=== PATIENT | female | born 1940 | race Caucasian/White ===

== ENCOUNTER 2019-02-08 14:23 | Inpatient (IN) | payer MEDICARE ==
[~2019-02-08] VITALS: Ht 162.6 cm; Wt 49.6 kg
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
[2019-02-08] MEDS ORDERED: BAYER CHEWABLE81 MG PO (15:48)
[2019-02-08] MEDS ORDERED: DONEPEZIL HCL10 MG PO (15:48)
[2019-02-08] MEDS ORDERED: BUSPAR10 MG PO (15:49)
[2019-02-08] MEDS ORDERED: CLARITIN 10 MG10 MG PO (15:50)
[2019-02-08] MEDS ORDERED: COLACE100 MG PO (15:54)
[2019-02-08] MEDS ORDERED: CYMBALTA30 MG PO (15:55)
[2019-02-08] MEDS ORDERED: TIROSINT88 MCG PO (15:56)
[2019-02-08] MEDS ORDERED: LISINOPRIL10 MG PO (15:56)
[2019-02-08] MEDS ORDERED: NAMENDA5 MG PO (16:03)
[2019-02-08] MEDS ORDERED: OXYBUTYNIN CHLOR5 MG PO (16:04)
[2019-02-08] MEDS ORDERED: RISPERDAL0.25 MG PO (16:05)
[2019-02-08] MEDS ORDERED: ARTIFICIAL TEAR15 ML EACH EYE (16:19)
[2019-02-08] MEDS ORDERED: MYLANTA / MAALO30 ML PO (16:20)
[2019-02-08] MEDS ORDERED: ACETAMINOPHEN325 MG PO (16:21)
[2019-02-08] MEDS ORDERED: ZOFRAN8 MG PO (16:22)
[2019-02-08 16:23] VITALS: BP 129/77; BMI 18.7
--- NOTE | 2019-02-08 17:06 | NUR ---
Attempted to call the skilled nursing to check on pneumonia vaccine status, no answer times multiple attempts.
--- NOTE | 2019-02-08 19:13 | NUR ---
Aplied a bed alarm to the patient's bed.
[2019-02-08 20:00] VITALS: BP 102/59
--- NOTE | 2019-02-08 21:17 | NUR ---
CONFUSED, NO SIGNS OF AGGRESSION AT THIS POINT, USES A WHEEL CHAIR FOR MOBILITY. WILL FOLLOW POC
[2019-02-09 06:26] LABS: BASOPHILS 0.3 % (0-2); EOSINOPHILS 2.9 % (0-7); HEMATOCRIT 41.7 % (36.0-48.0); HEMOGLOBIN 13.4 g/dL (12-16); IMMATURE GRANULOCYTES 0.1 % (0-5); LYMPHOCYTES 28.7 % (15-50); MCH 30.7 pg (26.0-34.0); MCHC 32.1 g/dL (31.0-37.0); MCV 95.4 fL (80.0-100.0); MEAN PLATELET VOLUME 9.8 fL (7.4-10.4); MONOCYTES 12.9 % (2-11); NEUTROPHILS 55.1 % (40-80); PLATELET COUNT 267 10x3/uL (130-400); RBC 4.37 10x6/uL (4.00-5.40); RDW 13.9 % (11.5-14.5); WBC 7.7 10x3/uL (4.8-10.8)
[2019-02-09 07:45] LABS: ALBUMIN 3.5 g/dL (3.4-5.0); ANION GAP 5.8 mmol/L (8-16); BILIRUBIN - TOTAL 0.35 mg/dL (0.2-1.3); CALCIUM 9.6 mg/dL (8.5-10.1); CARBON DIOXIDE 31.3 mmol/L (21.0-32.0); CHOL - HDL RATIO 2.9 ratio (2.3-4.1); CREATININE - SERUM 1.1 mg/dL (0.6-1.3); LDL-HDL RATIO 1.7 ratio (1.5-3.5); POTASSIUM - SERUM 4.1 mmol/L (3.5-5.1); PROTEIN - SERUM 7.8 g/dL (6.4-8.2); THYROID STIMULATING HORMONE 1.13 uIU/mL (0.36-3.74)
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
[2019-02-09 11:03] VITALS: BP 116/71
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
[2019-02-09 18:56] VITALS: BP 108/63
--- NOTE | 2019-02-09 19:17 | NUR ---
PT WAS SITTING IN WHEELCHAIR IN [facility]. PT STATED SHE TRIED TO GET UP. PT SLID OUT OF WHEELCHAIR ONTO FLOOR. DENIES ANY INJURY OR PAIN. VITALS: B/P: 105/59, P: 96, R: 18, T: 98.3. HOUSE SUPERVISIOR NOTIFIED. WILL NOTIFIY FAMILY.
--- NOTE | 2019-02-09 19:39 | NUR ---
CALLED DR. GUTIERREZ UNABLE TO REACH AT THIS TIME. WILL AWAIT CALL BACK.
--- NOTE | 2019-02-09 20:17 | NUR ---
DR. GUTIERREZ CALL BACK NOTIFIED OF INCIDENT. NO NEW ORDERS GIVEN AT THIS TIME.
--- NOTE | 2019-02-09 20:17 | NUR ---
ATTEMPTED TO CONTACT AT [phone]. NO ANSWER. AWAITING CALLBACK.
--- NOTE | 2019-02-09 21:20 | NUR ---
RECEIVED IN DAYROOM SITTING IN A RECLINING CHAIR WITH PEERS AT HER SIDE. CALM AND COOPERATIVE WITH CARE AND ASSESSMENT. NO SIGNS OF AGGRESSION. REDIRECT AND REORIENT NEEDED. CONTINUES TO SIT QUIETLY IN DAYROOM. CONTINUE PLAN OF CARE.
[2019-02-10 06:25] LABS: BASOPHILS 0.1 % (0-2); EOSINOPHILS 2.8 % (0-7); HEMATOCRIT 41.9 % (36.0-48.0); HEMOGLOBIN 13.3 g/dL (12-16); IMMATURE GRANULOCYTES 0.1 % (0-5); LYMPHOCYTES 32.9 % (15-50); MCH 30.4 pg (26.0-34.0); MCHC 31.7 g/dL (31.0-37.0); MCV 95.7 fL (80.0-100.0); MEAN PLATELET VOLUME 10.1 fL (7.4-10.4); MONOCYTES 12.7 % (2-11); NEUTROPHILS 51.4 % (40-80); PLATELET COUNT 256 10x3/uL (130-400); RBC 4.38 10x6/uL (4.00-5.40); RDW 13.8 % (11.5-14.5); WBC 6.7 10x3/uL (4.8-10.8)
--- NOTE | 2019-02-10 08:00 | NUR ---
PT IS AWAKE AND ALERT TO PERSON. CALM AND COOPERATIVE WITH ASSESSMENT. PT IS VERY CONFUSED AND HAS NO INSIGHT INTO HER SITUATION. PRESCRIBED MEDS PROVIDED. MED COMPLIANT. REDIRECT AND REORIENT NEEDED. FALL PRECAUTIONS IN PLACE. WILL CPOC.
[2019-02-10 09:13] VITALS: BP 98/80
[2019-02-10 10:10] LABS: ANION GAP 7.1 mmol/L (8-16); CALCIUM 9.4 mg/dL (8.5-10.1); CARBON DIOXIDE 33.8 mmol/L (21.0-32.0); POTASSIUM - SERUM 4.9 mmol/L (3.5-5.1)
[2019-02-10 13:52] VITALS: Ht 162.6 cm; Wt 49.6 kg
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
[2019-02-10 20:00] VITALS: BP 134/79
--- NOTE | 2019-02-10 21:06 | NUR ---
RECEIVED IN DAYROOM. SITTING QUIETLY IN A RECLINING CHAIR. CALM AND COOPERATIVE WITH CARE AND ASSESSMENT. NO SIGNS OF AGGRESSION. REDIRECT AND REORIENT NEEDED. RESTING EYES CLOSED IN BED AT THIS TIME. CONTINUE PLAN OF CARE
[2019-02-11 05:40] LABS: APPEARANCE CLEAR (CLEAR); BILIRUBIN NEGATIVE (NEGATIVE); COLOR YELLOW (YELLOW); GLUCOSE NEGATIVE (NEGATIVE); KETONE SMALL mg/dL (NEGATIVE); NITRITE NEGATIVE (NEGATIVE); PROTEIN 1+ mg/dL (NEGATIVE); SPECIFIC GRAVITY 1.015 (1.005-1.020); UROBILINOGEN NORMAL (NORMAL)
[2019-02-11 05:42] LABS: BACTERIA FEW /hpf (NEGATIVE); EPITHELIAL CELLS 0-5 /hpf (0-5); WHITE CELLS - URINE 0-5 /hpf (NEGATIVE)
[2019-02-11 08:11] LABS: RAPID PLASMA REAGIN Non Reactive (Non Reactive)
[2019-02-11 08:58] VITALS: BP 138/86
--- NOTE | 2019-02-11 10:29 | NUR ---
RECEIVED PT. IN DINING ROOM AT BREAKFAST TIME, ALERT, CALM, COOPERATIVE, NO AGGRESSION NOTED, APPETITE POOR, MEDS ADMIN PER ORDERS WITH COMPLETE MED COMPLIANCE NOTED. COOPERATIVE WITH POC. CONT POC DIRECTED.
--- NOTE | 2019-02-11 15:36 | PN ---
PATIENT:ANTOINETTE LOYD MEDICAL RECORD: [id number] LOCATION:ELENI Rand112 ADMISSION DATE: 02/08/19 PROGRESS NOTE DATE OF SERVICE: 02/10/2019 SUBJECTIVE: The patient's case was discussed with staff. She has no new complaint. OBJECTIVE: The patient is not eating well, but she did sleep well last night. She is clearly very impaired cognitively. ASSESSMENT: Dementia. PLAN: I am going to wait another day before starting her on Megace for appetite stimulation. She will be maintained on her current medications today. TRANSINT:[id number] Voice Confirmation ID: [id number] DOCUMENT ID: [id number] ZHENG MIRANDA MD at 1536 CC: [id number] DICTATION DATE: 02/10/19 1625 VENUE MANAGER: 02/10/19 1632 ADM IN [facility] [address] [place] [address]
--- NOTE | 2019-02-11 17:28 | NUR ---
PATIENT AGGRESSIVE, YELLING, EXPERIENCING ANXIETY. UNABLE TO RE-DIRECT DESPITE MULTIPLE ATTEMPTS. ATIVAN 0.5 MG AND HALDOL 2 MG ADMIN IM. SOSA WELL.
--- NOTE | 2019-02-11 18:24 | NUR ---
PATIENT YELLING, AGGRESSIVE, EXPERIENCING ANXIETY. ATIVAN 0.5 MG AND HALDOL 2 MG ADMIN IM. SOSA WELL.
[2019-02-11 22:08] VITALS: BP 110/69
--- NOTE | 2019-02-11 23:16 | NUR ---
RECEIVED IN BEDROOM. RESTING IN BED WITH EYES CLOSED. RESPONDS TO VOICE. CALM AND COOPERATIVE WITH CARE AND ASSESSMENT. NO SIGNS OF AGGRESSION. REDIRECT AND REORIENT NEEDED. RESTING IN BED WITH EYES CLOSED AT THIS TIME. CONTINUE PLAN OF CARE
[2019-02-12 08:48] VITALS: BP 112/56
--- NOTE | 2019-02-12 10:00 | NUR ---
RECEIVED PT IN DINING ROOM FOR B'FAST, APPETITE POOR, CALM, COOPERATIVE, NO AGGRESSION NOTED. MEDS ADMIN PER ORDERS WITH COMPLETE COMPLIANCE NOTED. CONT POC DIRECTED.
--- NOTE | 2019-02-12 12:43 | PN ---
PATIENT:ANTOINETTE LOYD MEDICAL RECORD: [id number] LOCATION:ELENI Rand112 ADMISSION DATE: 02/08/19 PROGRESS NOTE DATE OF SERVICE: 02/11/2019 SUBJECTIVE: The patient's case was discussed with staff. She has no new complaint. OBJECTIVE: The patient is in good behavioral control with poor insight about her situation. She generally tolerates her medicines well. ASSESSMENT: Dementia. PLAN: The patient is much calmer today. She did require a p.r.n. medication yesterday because of some agitation. I have reviewed her current medicines and will maintain them today. TRANSINT:[id number] Voice Confirmation ID: [id number] DOCUMENT ID: [id number] ZHENG MIRANDA MD at 1243 CC: [id number] DICTATION DATE: 02/11/19 1538 SALES COUNSELOR: 02/11/19 1709 ADM IN [facility] [address] [place] [address]
--- NOTE | 2019-02-12 13:40 | NUR ---
PHONED TO CHECK ON PATIENT'S CONDITION.
--- NOTE | 2019-02-12 21:18 | NUR ---
PATIENT IS CONFUSED, FLAT AFFECT, LABILE, HAS TO BE REDIRECTED AT TIMES, COMPLIANT WITH MEDS. WILL FOLLOW POC
[2019-02-12 22:00] VITALS: BP 117/74
[2019-02-13 09:00] VITALS: BP 125/77
--- NOTE | 2019-02-13 10:11 | NUR ---
NUTRITION F/U REG DIET PLUS ENSURE WITH MEALS. PT WITH POOR PO INTAKE SINCE ADMIT. NOTE MEGACE ADDED TO MEDS. WILL CONTINUE TO PROVIDE DIET/ENSURE. MONITOR PO INTAKE AND WT. RD FOLLOWING
--- NOTE | 2019-02-13 11:51 | NUR ---
B) The patient is awake and alert, she is confused and unsteady. She has not shown any aggression today. She is not eating well. I) Provide prescribed meds. R) The patient is compliant with meds. P) Continue POC.
--- NOTE | 2019-02-13 14:26 | PN ---
PATIENT:ANTOINETTE LOYD MEDICAL RECORD: [id number] LOCATION:ELENI Rand112 ADMISSION DATE: 02/08/19 PROGRESS NOTE DATE OF SERVICE: 02/12/2019 SUBJECTIVE: The patient's case was discussed with staff. She has no new complaint. OBJECTIVE: The patient is not eating or drinking adequately. She has very limited insight about her situation. Efforts are being made to encourage her to eat better. She is taking an appetite stimulating medication. ASSESSMENT: Dementia. PLAN: Current medicines and therapies have been reviewed. Her long-term prognosis is guarded. TRANSINT:[id number] Voice Confirmation ID: [id number] DOCUMENT ID: [id number] ZHENG MIRANDA MD at 1426 CC: [id number] DICTATION DATE: 02/12/19 1623 WHARF ATTENDANT: 02/12/19 1646 ADM IN [facility] [address] [place] [address]
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
[2019-02-13 21:32] VITALS: BP 120/56
--- NOTE | 2019-02-14 00:06 | NUR ---
PATIENT IS CONFUSED, HAS TO BE REDIRECTED AT TIMES. COMPLIANT WITH MEDS AT THIS EVENING. WILL FOLLOW POC
--- NOTE | 2019-02-14 07:29 | NUR ---
B) The patient is awake and alert, she is pleasant and calm, she is sitting in the hallway in a gerichair. She says she is "ok" but she is still sleepy. I) Provide prescribed meds. R) The patient is compliant with meds. P) Continue POC.
[2019-02-14 09:45] VITALS: BP 133/55
--- NOTE | 2019-02-14 13:02 | NUR ---
NURSE SPOKE WITH PT ABOUT HER INTAKE WITH BREAKFAST AND LUNCH. NURSE EXPLAINED SHE DID NOT EAT MUCH OF BREAKFAST STATING SHE DID NOT FEEL WELL AND THEY ARE STILL EATING LUNCH. HE INQUIRED ABOUT IF SHE WAS INTAKING FOOD NURSE STATED SHE WAS. A SWALLOW EVAL WAS PERFORMED YESTERDAY TO ENSURE SHE COULD SWALLOW PROPERLY. NURSE TOLD SHE PASSED THE STUDY. HE WANTED TO KNOW IF WE HAD A DISCHARGE DATE AND NURSE EXPLAINED A STAY HERE WAS ABOUT 7 TO 14 DAYS. WE DIDNT HAVE A DATE IN SIGHT YET. HE EXPRESSED UNDERSTANDING.
--- NOTE | 2019-02-14 14:37 | PN ---
PATIENT:ANTOINETTE LOYD MEDICAL RECORD: [id number] LOCATION:ELENI Rand112 ADMISSION DATE: 02/08/19 PROGRESS NOTE DATE OF SERVICE: 02/13/2019 SUBJECTIVE: The patient's case was discussed with staff. She has no new complaint. OBJECTIVE: The patient denies intent to harm herself or others. She generally tolerates her medicines well. ASSESSMENT: Dementia. PLAN: Current medicines and therapies have been reviewed. The patient continues to not eat adequately and this is in danger of developing into something that may be life threatening. Staff are trying everything they can and in every way they can to increase her oral intake with almost no success. My view of this is that the reduction in her oral intake is related to an advanced dementia rather than some underlying mood disorder. TRANSINT:[id number] Voice Confirmation ID: [id number] DOCUMENT ID: [id number] ZHENG MIRANDA MD at 1437 CC: [id number] DICTATION DATE: 02/13/19 1531 HAND HIDE STRETCHER: 02/13/19 1749 ADM IN [place] [id number] [place] [id number]
--- NOTE | 2019-02-14 17:40 | NUR ---
PT ENCOURAGE TO EAT MORE AT MEAL TIMES. MEGACE GIVEN. PT DID EAT SNACKS BETWEEN MEAL TIMES. WILL CONT TO ENCOURAGE.
--- NOTE | 2019-02-14 21:05 | NUR ---
B.) PT IS ALERT AND ORIENTED TO SELF. SHE IS PLEASANT WITH STAFF AND PEERS. SHE IS ABLE TO MAKE HER NEEDS KNOWN. SHE IS RECEIVED IN HER AZALIA-CHAIR. I.) PROVIDED PM MEDICATIONS. OFFER MEAL SUPPLEMENT OR HS SNACK. R.) COMPLIANT WITH ALL MEDICATIONS. REFUSED MEAL SUPPLEMENT AND HS SNACK. P.) CONTINUE PLAN OF CARE
[2019-02-15 02:34] VITALS: BP 130/66
[2019-02-15 09:03] VITALS: BP 137/74
--- NOTE | 2019-02-15 09:10 | NUR ---
The patient's spouse called and asked how she was doing. let him know she is doing well, not eating well, but pleasant, no aggression. He said "Let her know I will come see her tomorrow."
--- NOTE | 2019-02-15 11:42 | NUR ---
The patient is pleasant this am, she is more alert, but she is confused. She has poor insight into her situation. She is sitting in a yanci chair. She is not getting up to walk she is unsteady. Provide prescribed meds. The patient is compliant with meds. Continue POC.
--- NOTE | 2019-02-15 12:38 | PN ---
PATIENT:ANTOINETTE LOYD MEDICAL RECORD: [id number] LOCATION:ELENI Rand112 ADMISSION DATE: 02/08/19 PROGRESS NOTE DATE OF SERVICE: 02/14/2019 SUBJECTIVE: The patient's case was discussed with staff. She has no new complaint. OBJECTIVE: The patient denies that she would seek to harm herself or others. She generally is tolerating her medicines well. She has not been aggressive today. ASSESSMENT: Dementia. PLAN: The patient's BuSpar will be increased to 20 mg daily. She will be monitored for clinical changes associated with its use. Her long-term prognosis is guarded. TRANSINT:[id number] Voice Confirmation ID: [id number] DOCUMENT ID: [id number] ZHENG MIRANDA MD at 1238 CC: [id number] DICTATION DATE: 02/14/19 1522 FULL TIME BABYSITTER: 02/14/19 1620 ADM IN [place] [id number] [place] [address]
--- NOTE | 2019-02-15 20:02 | NUR ---
B.) PT IS ALERT AND ORIENTED TO SELF. SHE IS RECEIVED IN HER AZALIA CHAIR IN THE DAYROOM. SHE IS ABLE TO MAKE HER NEEDS KNOWN. SHE WAS IRRITATED WITH A PTS RUDE INAPPROPRIATE BEHAVIOR. I.) REDIRECT OFTEN NEEDED. R.) EASY TO REDIRECT. P.) WILL CONTINUE TO MONITOR
[2019-02-15 20:10] VITALS: BP 75/39
--- NOTE | 2019-02-15 21:29 | NUR ---
PT BP ON RIGHT ARM IS 74/40 MANUALLY. PT IS ALERT AND TALKATIVE. PAGED DR GUTIERREZ. HE DISCONTINUED HER LISONPRIL, ORDERED CBC AND CMP. WILL CONTINUE TO MONITOR.
[2019-02-16 05:43] LABS: BASOPHILS 0.1 % (0-2); EOSINOPHILS 1.4 % (0-7); HEMATOCRIT 38.6 % (36.0-48.0); HEMOGLOBIN 12.6 g/dL (12-16); IMMATURE GRANULOCYTES 0.3 % (0-5); LYMPHOCYTES 16.8 % (15-50); MCH 30.8 pg (26.0-34.0); MCHC 32.6 g/dL (31.0-37.0); MCV 94.4 fL (80.0-100.0); MEAN PLATELET VOLUME 9.6 fL (7.4-10.4); MONOCYTES 11.3 % (2-11); NEUTROPHILS 70.1 % (40-80); PLATELET COUNT 211 10x3/uL (130-400); RBC 4.09 10x6/uL (4.00-5.40); WBC 10.7 10x3/uL (4.8-10.8)
[2019-02-16 06:07] LABS: ANION GAP 10.9 mmol/L (8-16); BILIRUBIN - TOTAL 0.55 mg/dL (0.2-1.3); CALCIUM 9.2 mg/dL (8.5-10.1); CREATININE - SERUM 1.6 mg/dL (0.6-1.3); POTASSIUM - SERUM 4.9 mmol/L (3.5-5.1); PROTEIN - SERUM 7.3 g/dL (6.4-8.2)
[2019-02-16 08:00] VITALS: BP 132/63
--- NOTE | 2019-02-16 09:30 | NUR ---
RECEIVED PATIENT IN DINING ROOM FOR B'FAST, DROWSY, APPETITE POOR. HOWEVER, PT DID DRINK 2 BOTTLES OF ENSURE. MEDS MIXED WITH PUDDNG TO FACILITATE ADMINISTRATION. CONT POC DIRECTED.
--- NOTE | 2019-02-16 11:33 | NUR ---
SPOUSE CALLED TO CHECK ON PATIENT'S CONDITION. SPOUSE CONCERNED THAT PATIENT WAS TOO SEDATED AND UNABLE TO CARRY ON A CONVERSATION AND AMBULATE SHE HAD DONE PRIOR TO ADMISSION.
--- NOTE | 2019-02-16 11:48 | PN ---
PATIENT:ANTOINETTE LOYD MEDICAL RECORD: [id number] LOCATION:ELENI Rand112 ADMISSION DATE: 02/08/19 PROGRESS NOTE DATE OF SERVICE: 02/15/2019 SUBJECTIVE: The patient's case was discussed with staff. She has no new complaint. OBJECTIVE: The patient is still not eating adequately, but her behaviors are better. She is sleeping very well. ASSESSMENT: Dementia. PLAN: The patient will be maintained on current medicines, which I have reviewed. Her long-term prognosis is guarded. TRANSINT:[id number] Voice Confirmation ID: [id number] DOCUMENT ID: [id number] ZHENG MIRANDA MD at 1148 CC: [id number] DICTATION DATE: 02/15/19 1338 PALLIATIVE MEDICINE PHYSICIAN: 02/15/19 1428 ADM IN [place] [id number] [place] [address]
--- NOTE | 2019-02-16 17:53 | NUR ---
IV PLACED LEFT FOREARM, 22 GAUGE SALINE LOCK. IV FLUIDS STARTED, D5 W AT 125 ML/HR. SOSA WELL.
[2019-02-16 20:00] VITALS: BP 105/63
--- NOTE | 2019-02-16 20:13 | NUR ---
SPOKE WITH PT . HE IS CONCERNED WITH HER BP. INFORMED HIM THAT IT IS INCREASING WITH FLUIDS. HE STATED "I WILL CALL BACK AT MIDNIGHT TO SEE IF HER PRESSURE HAS INCREASED ANY."
--- NOTE | 2019-02-17 01:27 | NUR ---
B.) PT IS LETHARGIC. SHE RESPONDS TO VERBAL AND PHYSICAL STIMULATION WITH EASE. SHE IS RECEIVED IN THE DAYROOM IN A AZALIA-CHAIR. SHE HAS AN IV IN HER LEFT FOREARM WITH D5W RUNNING AT 125ML/HR. SITE CLEAR OF S/S OF INFECTION. I.) REORIENT NEEDED. PROVIDED PM MEDICATIONS. R.) DIFFICULT TO REORIENTATION. COMPLIANT WITH ALL MEDICATIONS. P.) WILL CONTINUE TO MONITOR.
[2019-02-17 08:15] LABS: ANION GAP 12.8 mmol/L (8-16); CARBON DIOXIDE 26.7 mmol/L (21.0-32.0); POTASSIUM - SERUM 5.5 mmol/L (3.5-5.1)
[2019-02-17 08:17] LABS: CREATININE - SERUM 2.1 mg/dL (0.6-1.3)
[2019-02-17 08:20] LABS: HEMOGLOBIN 12.5 g/dL (12-16); MCH 30.7 pg (26.0-34.0); MCHC 32.9 g/dL (31.0-37.0); MCV 93.4 fL (80.0-100.0); PLATELET COUNT 236 10x3/uL (130-400); RBC 4.07 10x6/uL (4.00-5.40); RDW 14.1 % (11.5-14.5)
[2019-02-17 09:12] LABS: LYMPHOCYTES 8 % (15-50); MONOCYTES 10 % (2-11); NEUTROPHILS 75 % (40-80); PLATELET ESTIMATE NORMAL
--- NOTE | 2019-02-17 10:00 | NUR ---
PATIENT LETHARGIC, HYPOTENSIVE, PHYSICIAN NOTIFIED AND ORDERED PT TO BE TRANSFERRED TO MED UNIT. SPOUSE NOTIFIED.
[2019-02-17] MEDS ORDERED: BUSPAR10 MG PO (10:32)
[2019-02-17] MEDS ORDERED: PERIDEX PO (10:32)
[2019-02-17] MEDS ORDERED: Megace ES [CHEMO] PO (10:32)
[2019-02-17 10:38] VITALS: BP 83/42
--- NOTE | 2019-02-17 11:04 | NUR ---
Nutrition Follow-up: Diet: Regular + Ensure TID PO intake: ~22% average x last 9 meals (range = 0-100%) Last BM: 02/17/19. Wt: 109# (02/16/19); Admit wt: 109# (02/08/19) Significant meds: megace (started 02/10/19), D5W @125ml/hr. Labs noted: Na 130, K 5.5, BUN 63, Cr 2.1, GFR 153, Glu 153. Continue current nutrition regimen and megace as medically feasible. Encourage PO intake. RD is available for nutrition support recommendations if needed. RD Following.
--- NOTE | 2019-02-17 12:16 | PN ---
PATIENT:ANTOINETTE LOYD MEDICAL RECORD: [id number] LOCATION:ELENI Rand112 ADMISSION DATE: 02/08/19 PROGRESS NOTE DATE OF SERVICE: 02/17/2019 SUBJECTIVE: The patient's case was discussed with staff. She has no new complaint. OBJECTIVE: The patient is in good behavioral control, but she is very lethargic looking. Her blood pressure was low. Her heart rate is high. Yesterday, she looked somewhat lethargic, but her vital signs were normal. Her was concerned that we were giving her something that might be causing her to be sedated. The only sedating medicine she was receiving on a scheduled basis was Risperdal and she came to us on that same medicine at the same dose she is currently. Nevertheless, I went ahead and discontinued it. She has had some baseline labs and the only significant abnormalities were her BUN and creatinine indicating dehydration. The hair and makeup designer was called and ordered fluids. She has had several bags of fluid, but has not perked up any period and currently she has the tachycardia and hypotension. ASSESSMENT: Dementia. PLAN: The patient may be septic or there may be some other condition responsible for her situation right now. Either way, it is not a psychiatric or behavioral and she is in need of medical attention. Dr. Angel is going to transfer her to the medical floor and evaluate and treat her. Once that treatment there is continued if appropriate, I would be happy to accept her back on this unit for treatment. TRANSINT:[id number] Voice Confirmation ID: [id number] DOCUMENT ID: [id number] ZHENG MIRANDA MD at 1216 CC: [id number] DICTATION DATE: 02/17/19 1037 AGRICULTURAL CHEMIST: 02/17/19 1118 ADM IN [facility] [address] [place] [address]
--- NOTE | 2019-02-17 12:30 | NUR ---
PATIENT TRANSFERRED TO [facility] ROOM 2106. REPORT CALLED TO MERRITT ONEAL.
== END 2019-02-17 14:06 | disposition short-term general hospital (02) | DRG 56 ==
LOC: D.PSYCH 14:23
PROVIDERS: Family Medicine; ADMIT Emergency Medicine; ATTEND Psychiatry & Neurology Psychiatry
DX: G30.9 Alzheimer's disease, unspecified (principal); A41.9 Sepsis, unspecified organism; R65.20 Severe sepsis without septic shock; N17.1 Acute kidney failure with acute cortical necrosis; F02.81 Dementia in other diseases classified elsewhere, unspecified severity, with behavioral disturbance; E87.1 Hypo-osmolality and hyponatremia; Z68.1 Body mass index [BMI] 19.9 or less, adult; E03.9 Hypothyroidism, unspecified; I10 Essential (primary) hypertension; E86.0 Dehydration; R00.0 Tachycardia, unspecified; M06.9 Rheumatoid arthritis, unspecified; M19.90 Unspecified osteoarthritis, unspecified site; K59.01 Slow transit constipation; K21.9 Gastro-esophageal reflux disease without esophagitis; N32.81 Overactive bladder; Z91.81 History of falling; R63.0 Anorexia; Z74.09 Other reduced mobility

== ENCOUNTER 2019-02-17 12:59 | Inpatient (IN) | payer MEDICARE ==
[~2019-02-17] VITALS: Ht 162.6 cm; Wt 49.4 kg
--- NOTE | 2019-02-17 12:55 | NUR ---
RECEIVED PT TO ROOM 2106 VIA STRETCHER RESPONDS TO VERBAL STIMULI CONFUSED GARBLED SPEECH COLOR PALE SALINE LOCK INTACT TO LFA WITH D5W PATENT AT 125 CC/HR PER PUMP SITE FREE OF REDNESS OR EDEMA WILL CONTINUE TO MONITOR
[~2019-02-17 12:59] MED LIST: ACETAMINOPHEN325 MG PO; ARTIFICIAL TEAR15 ML EACH EYE; BAYER CHEWABLE81 MG PO; BUSPAR10 MG PO; CLARITIN 10 MG10 MG PO; COLACE100 MG PO; CYMBALTA30 MG PO; DONEPEZIL HCL10 MG PO; LISINOPRIL10 MG PO; MYLANTA / MAALO30 ML PO; Megace ES [CHEMO] PO; NAMENDA5 MG PO; OXYBUTYNIN CHLOR5 MG PO; PERIDEX PO; RISPERDAL0.25 MG PO; TIROSINT88 MCG PO; ZOFRAN8 MG PO
[2019-02-17 13:18] VITALS: BP 83/42; BMI 18.7
--- NOTE | 2019-02-17 14:38 | NUR ---
PT ADMITTED TO ROOM 2105. HARD TO AROUSE AT FIRST THEN ANSWERED QUESTIONS.V/S STABLE TELEMERTY SHOWS SR 92. IV TO LEFT ARM PATENT.FOLLEY CATH 16 F INSERTED WITHOUT DIFFICULTY. ONE DIME SIZED RED SPOT ABOVE RECTUM. 2 SMALL SCRATHES ALSO NOTED. BEDALARM APPLIED TO BED. SR UP WITH CALL LIGHT IN REACH
[2019-02-17 15:50] LABS: APPEARANCE CLEAR (CLEAR); BILIRUBIN NEGATIVE (NEGATIVE); COLOR DK YELLOW (YELLOW); GLUCOSE NEGATIVE (NEGATIVE); KETONE NEGATIVE (NEGATIVE); NITRITE NEGATIVE (NEGATIVE); PROTEIN NEGATIVE (NEGATIVE); UROBILINOGEN NORMAL (NORMAL)
--- NOTE | 2019-02-17 17:35 | NUR ---
LYING QUIETLY WITH HOB UP. DENIES ANY NEEDS. CLARK DRAING WELL. WILL MONITOR
[2019-02-17 17:51] VITALS: BP 100/51
--- NOTE | 2019-02-17 19:39 | NUR ---
REPORT RECIEVED AND ROUNDING COMPLETE. PATIENT LAYING IN BED IN HIGH FOWLERS. PATIENT ASKED FOR HER T.V TO BE TURNED ON. PATIENT HAS A LEFT FOREARM PIV. PIV IS PATENT AND RUNNING D5W@ 150. PATIENT HAS A CLARK WITH CLEAR YELLOW URINE. PATIENT IS SHOWING NO S/SX OF DISTRESS AT THIS TIME. PATIENT STATES SHE HAS NO NEEDS AT THIS TIME. CALL LIGHT WITHIN REACH AND BED IN LOWEST LOCKED POSITION.
[2019-02-17 20:45] VITALS: BP 105/54
[2019-02-18 00:46] VITALS: BP 100/55
--- NOTE | 2019-02-18 02:57 | NUR ---
I have reviewed this patient and I concur with the Shift Assessment completed by the Licensed Practical Nurse today this shift.
[2019-02-18 04:23] VITALS: BP 102/53
--- NOTE | 2019-02-18 07:00 | NUR ---
RECEIVED BEDSIDE REPORT. ASSUMED CARE OF PATIENT. PATIENT IS AWAKE AND ALERT BUT CONFUSED. PATIENT HAS SPOUSE AT BEDSIDE. CALL LIGHT WITHIN REACH. NO DISTRESS. CLARK CATHETER PATENT FOR URINARY RETENSION. NO ACUTE DISTRESS.
[2019-02-18 07:36] LABS: ALBUMIN 2.3 g/dL (3.4-5.0); ANION GAP 13.2 mmol/L (8-16); BILIRUBIN - TOTAL 0.67 mg/dL (0.2-1.3); CALCIUM 8.4 mg/dL (8.5-10.1); CARBON DIOXIDE 24.4 mmol/L (21.0-32.0); CREATININE - SERUM 1.9 mg/dL (0.6-1.3); POTASSIUM - SERUM 4.6 mmol/L (3.5-5.1); PROTEIN - SERUM 5.5 g/dL (6.4-8.2)
[2019-02-18 07:38] LABS: BASOPHILS 0 % (0-2); EOSINOPHILS 0.2 % (0-7); HEMATOCRIT 33.2 % (36.0-48.0); HEMOGLOBIN 11.1 g/dL (12-16); IMMATURE GRANULOCYTES 0.3 % (0-5); LYMPHOCYTES 6.5 % (15-50); MCH 30.5 pg (26.0-34.0); MCHC 33.4 g/dL (31.0-37.0); MCV 91.2 fL (80.0-100.0); MEAN PLATELET VOLUME 10.7 fL (7.4-10.4); MONOCYTES 8.2 % (2-11); NEUTROPHILS 84.8 % (40-80); PLATELET COUNT 246 10x3/uL (130-400); RBC 3.64 10x6/uL (4.00-5.40)
--- NOTE | 2019-02-18 07:45 | NUR ---
NOTIFIED OF NA 126, NEW ORDERS RECEIVED TO D/C D5W AND START NS @ 100.
[2019-02-18 07:46] VITALS: BP 98/53
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
[2019-02-18 11:23] VITALS: BP 92/53
[2019-02-18 13:08] VITALS: Ht 162.6 cm; Wt 49.4 kg
--- NOTE | 2019-02-18 13:45 | MORECARE ---
CASE MANAGEMENT DISCHARGE SUMMARY PATIENT: ANTOINETTE LOYD UNIT: [id number] ADM DATE: 02/17/19 AGE: 78 : 42 SEX: F ROOM/BED: D.2106 AUTHOR: JAMEY HEMPHILL PHYSICIAN: REFERRING PHYSICIAN: BUD ANGEL MD DATE OF SERVICE: 02/18/19 Discharge Plan Patient Name: ANTOINETTE LOYD Facility: [facility]:[place] : 1940 Planned Disposition: SNF w Planned Readmission Anticipated Discharge Date: 02/20/19 Discharge Date: Expected LOS: 3 Initial Reviewer: [email or web address] Initial Review Date: 02/17/2019 Generated: 02/18/19 2:44 pm DCPIA - Discharge Planning Initial Assessment Updated by [email or web address]: Janice Gore on 02/18/19 1:45 pm * Is the patient Alert and Oriented? Yes * How many steps to enter\exit or inside your home? None * PCP Dr. Angel * [facility] * [facility]read[facility] Environment [facility] * Facility Name [facility] * ADLs Partial Dependent * Partial ADLs (Assistance needed) Dressing Medication Management * Other Equipment reports she was able to ambulate in [place] without assistive devises prior to admission in [facility]. * List name and contact numbers for known caregivers / representatives who currently or will assist patient after discharge: Francois Loyd - - [phone] (home) [phone] (cell) * Verbal permission to speak to the caregivers and representatives has been obtained from the patient. Yes * Community resources currently utilized None * Additional services required to return to the preadmission environment? No * Can the patient safely return to the preadmission environment? Yes * Has this patient been hospitalized within the prior 30 days at any hospital? Yes Patient Name: ANTOINETTE LOYD Page [phone] at 1345 All edits/amendments must be made on the electronic document DICTATION DATE: 02/18/19 1344 INTERNATIONAL EXCHANGE COORDINATOR: NORAH 02/18/19 1344 RPT#: [id number] DC DATE: STATUS: ADM IN [facility] [address] [place] [address] END OF REPORT
--- NOTE | 2019-02-18 13:55 | MORECARE ---
CASE MANAGEMENT DISCHARGE SUMMARY PATIENT: ANTOINETTE LOYD UNIT: [id number] ADM DATE: 02/17/19 AGE: 78 : 42 SEX: F ROOM/BED: D.7906 AUTHOR: KANCHAN,DOC PHYSICIAN: REFERRING PHYSICIAN: BUD ANGEL MD DATE OF SERVICE: 02/18/19 Discharge Plan Patient Name: ANTOINETTE LOYD Facility: [facility]:[place] : 1940 Planned Disposition: SNF w Planned Readmission Anticipated Discharge Date: 02/20/19 Discharge Date: Expected LOS: 3 Initial Reviewer: [id number] Initial Review Date: 02/17/2019 Generated: 02/18/19 2:54 pm Comments DCP- Discharge Planning Updated by [email or web address]: Janice Gore on 02/18/19 12:[address] DC PLAN: Return to [facility]. ANTICIPATED DC NEEDS: Transport back to [facility]. CM met with patient and her , Francois Loyd, to complete initial dc planning assessment. CM educated them on the CM role and verbal consent given by Francois to complete assessment. CM verified patient's address, phone number, and emergency contact phone numbers. Patient is a half-way resident at [facility]. 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 Francois reports prior to admission to the [facility] Care unit she was able to ambulate without assistive devices. At discharge Francois said the patient will return to [facility] and feels this is a safe discharge. He does not want her to return to [facility]. CM faxed update to [facility] as requested. CM will continue to follow and will assist as needed with dc plans/needs. Janice Gore RN, [facility] DCPIA - Discharge Planning Initial Assessment Updated by [id number]: Janice Gore on 02/18/19 1:45 pm * Is the patient Alert and Oriented? Yes * How many steps to enter\exit or inside your home? None * PCP Dr. Angel * Pharmacy [facility] * [facility]read[facility] Environment [facility] * Facility Name [facility] * ADLs Partial Dependent * Partial ADLs (Assistance needed) Dressing Medication Management * Other Equipment reports she was able to ambulate in [place] without assistive devises prior to admission in . Care. * List name and contact numbers for known caregivers / representatives who currently or will assist patient after discharge: Francois Loyd - - [phone] (home) [phone] (cell) * Verbal permission to speak to the caregivers and representatives has been obtained from the patient. Yes * Community resources currently utilized None * Additional services required to return to the preadmission environment? No * Can the patient safely return to the preadmission environment? Yes * Has this patient been hospitalized within the prior 30 days at any hospital? Yes External Providers External Provider: [facility] Next Contact Date: Service Request Date: Service Type: Resolution: Reviewer: Comments: Last DP export: 02/18/19 12:45 Patient Name: ANTOINETTE LOYD Page 99448 at 1355 All edits/amendments must be made on the electronic document DICTATION DATE: 02/18/19 135 WEAVER HAND LOOM: NORAH 02/18/19 1354 RPT#: [id number] DC DATE: STATUS: ADM IN [facility] [address] [place] [address] END OF REPORT
--- NOTE | 2019-02-18 14:31 | MORECARE ---
CASE MANAGEMENT DISCHARGE SUMMARY PATIENT: ANTOINETTE LOYD UNIT: [id number] ADM DATE: 02/17/19 AGE: 78 : 42 SEX: F ROOM/BED: D.2106 AUTHOR: KANCHAN,DOC PHYSICIAN: REFERRING PHYSICIAN: BUD ANGEL MD DATE OF SERVICE: 02/18/19 Discharge Plan Patient Name: ANTOINETTE LOYD Facility: [facility]:[place] : 1940 Planned Disposition: Intermediate Facility Anticipated Discharge Date: 02/20/19 Discharge Date: Expected LOS: 3 Initial Reviewer: [email or web address] Initial Review Date: 02/17/2019 Generated: 02/18/19 3:30 pm Comments DCP- Discharge Planning Updated by [id number]: Merrick Sewell on 02/18/19 1:[address] Patient Name: ANTOINETTE LOYD Encounter No: [id number] : 1940 Primary Insurance: MEDICARE A & B Anticipated DC Date: 02-20-2019 Planned Disposition: Intermediate Facility External Planned Provider: [facility], FDC CARE MEDICAID BED DCP follow-up note: TIFFANIE RECEIVED [facility] WHO VERIFIED PT IS IN FDC CARE MEDICAID BED FROM FACILITY, UNDERSTANDS THAT FAMILY WILL NOT RETURN PT TO [facility] [place] AND THAT [facility] PLANS TO ACCEPT PT BACK FOR CONTINUED RADIOLOGY ADMINISTRATOR CARE. PRINCE ASKED FOR FAX UPDATE. TIFFANIE SPOKE TO MERRITT GORE WHO ADVISED THAT UPDATE HAS BEEN FAXED TO [facility] TODAY. FOR DISCHARGE, FAX DISCHARGE INFORMATION TO [facility] AT [phone]; NURSE REPORT TO BE CALLED TO [facility] AT [phone]. [facility] TO ARRANGE VAN TRANSPORTATION IF APPROPRIATE. LUCAS Morris DCP- Discharge Planning Updated by [id number]: Janice Gore on 02/18/19 12:[address] DC PLAN: Return to [facility]. ANTICIPATED DC NEEDS: Transport back to [facility]. TIFFANIE met with patient and her , Francois Loyd, to complete initial dc planning assessment. CM educated them on the CM role and verbal consent given by Francois to complete assessment. CM verified patient's address, phone number, and emergency contact phone numbers. Patient is a long-term resident at [facility]. 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 Francois reports prior to admission to the [facility] Care unit she was able to ambulate without assistive devices. At discharge Francois said the patient will return to [facility] and feels this is a safe discharge. He does not want her to return to [facility]. CM faxed update to [facility] as requested. CM will continue to follow and will assist as needed with dc plans/needs. Janice Gore RN, [facility] DCPIA - Discharge Planning Initial Assessment Updated by [email or web address]: Janice Gore on 02/18/19 1:55 pm * Is the patient Alert and Oriented? No * How many steps to enter\exit or inside your home? None * PCP Dr. Angel * Pharmacy long term pharmacy * Preadmission Environment [facility] * Facility Name [facility] * ADLs Partial Dependent * Partial ADLs (Assistance needed) Dressing Medication Management * Other Equipment reports she was able [place] ambulate [place] without assistive devises prior to admission in [facility]. * List name and contact numbers for known caregivers / representatives who currently or will assist patient after discharge: Francois Loyd - - [phone] (home) [phone] (cell) * Verbal permission to speak to the caregivers and representatives has been obtained from the patient. Yes * Community resources currently utilized None * Additional services required to return to the preadmission environment? No * Can the patient safely return to the preadmission environment? Yes * Has this patient been hospitalized within the prior 30 days at any hospital? Yes Last DP export: 02/18/19 12:55 Patient Name: ANTOINETTE LOYD Page 53215 at 1431 All edits/amendments must be made on the electronic document DICTATION DATE: 02/18/191429 ENVIRONMENTAL MANAGER: NORAH 02/18/191429 RPT#: [id number] DC DATE: STATUS: ADM IN [facility] [address] [place] [address] END OF REPORT
[2019-02-18 15:26] VITALS: BP 107/56
--- NOTE | 2019-02-18 16:00 | NUR ---
INCONTINENT CARE PROVIDED. PATIENT RESTING IN BED WITH EYES OPEN. IV ABX INFUSING ORDERED. CALL LIGHT WITHIN REACH. PATIENT SPOUSE AT BEDSIDE. NO DISTRESS.
--- NOTE | 2019-02-18 19:20 | NUR ---
REPORT RECEIVED, WILL CONTINUE POC. PATIENT IS ALERT BUT PLEASANTLY CONFUSED. AT BEDSIDE. NO S/S OF DISTRESS OBSERVED, RR EVEN AND UNLABORED ON ROOM AIR. IV TO LT FA, PATENT, INFUSING NS @100ML/HR, DRSG C/D/I. F/C PATENT, DRAINING YELLOW URINE BY GRAVITY TO RT SIDE OF BED. PATIENT DENIES NEEDS AT THIS TIME. CL IN REACH, BED LOCKED AND LOWERED. WILL CTM.
[2019-02-18 20:00] VITALS: BP 100/49
[2019-02-19] VITALS: BP 91/64
--- NOTE | 2019-02-19 02:53 | NUR ---
I have reviewed this patient and I concur with the Shift Assessment completed by the Licensed Practical Nurse today this shift.
[2019-02-19 04:00] VITALS: BP 121/65
[2019-02-19 05:05] LABS: BASOPHILS 0.1 % (0-2); EOSINOPHILS 0.8 % (0-7); HEMATOCRIT 34.6 % (36.0-48.0); HEMOGLOBIN 11.2 g/dL (12-16); IMMATURE GRANULOCYTES 0.3 % (0-5); MCH 30.2 pg (26.0-34.0); MCHC 32.4 g/dL (31.0-37.0); MEAN PLATELET VOLUME 9.7 fL (7.4-10.4); MONOCYTES 8.3 % (2-11); NEUTROPHILS 82.5 % (40-80); PLATELET COUNT 247 10x3/uL (130-400); RBC 3.71 10x6/uL (4.00-5.40); RDW 14.1 % (11.5-14.5)
[2019-02-19 05:08] LABS: MCV 93.3 fL (80.0-100.0); WBC 11.4 10x3/uL (4.8-10.8)
[2019-02-19 05:26] LABS: ANION GAP 10.5 mmol/L (8-16); CALCIUM 8.5 mg/dL (8.5-10.1); POTASSIUM - SERUM 4.5 mmol/L (3.5-5.1); VANCOMYCIN - RANDOM 17.2 ug/mL (10.0-20.0)
[2019-02-19 05:28] LABS: CREATININE - SERUM 1.2 mg/dL (0.6-1.3)
--- NOTE | 2019-02-19 05:49 | NUR ---
ADMINISTERED AM MED. PATIENT DID NOT TOLERATE PO MED WELL. TOOK PATIENT 5MINUTES TO SWALLOW SYNTHROID.
--- NOTE | 2019-02-19 09:03 | MORECARE ---
CASE MANAGEMENT DISCHARGE SUMMARY PATIENT: ANTOINETTE LOYD UNIT: [id number] ADM DATE: 02/17/19 AGE: 78 : 42 SEX: F ROOM/BED: D.2106 AUTHOR: KANCHAN,DOC PHYSICIAN: REFERRING PHYSICIAN: BUD ANGEL MD DATE OF SERVICE: 02/19/19 Discharge Plan Patient Name: ANTOINETTE LOYD Facility: [facility]:[place] : 1940 Planned Disposition: Shelter Facility Anticipated Discharge Date: 02/20/19 Discharge Date: Expected LOS: 3 Initial Reviewer: [id number] Initial Review Date: 02/17/2019 Generated: 02/19/19 10:03 am Comments DCP- Discharge Planning Updated by [id number]: Merrick Sewell on 02/18/19 1:[address] Patient Name: ANTOINETTE LOYD Encounter No: [id number] : 1940 Primary Insurance: MEDICARE A & B Anticipated DC Date: 02-20-2019 Planned Disposition: Shelter Facility External Planned Provider: [facility], HALFWAY CARE MEDICAID BED DCP follow-up note: TIFFANIE [facility]CE[facility] WHO VERIFIED PT IS IN DATA CONVERSION OPERATOR CARE MEDICAID BED FROM FACILITY, UNDERSTANDS THAT FAMILY WILL NOT RETURN PT TO [facility] [place] AND THAT [facility] PLANS TO ACCEPT PT BACK FOR CONTINUED DATA CONVERSION OPERATOR CARE. PRINCE ASKED FOR FAX UPDATE. TIFFANIE SPOKE TO MERRITT GORE WHO ADVISED THAT UPDATE HAS BEEN FAXED TO [facility] TODAY. FOR DISCHARGE, FAX DISCHARGE INFORMATION TO [facility] AT [phone]; NURSE REPORT TO BE CALLED TO [facility] AT [phone]. [facility] TO ARRANGE VAN TRANSPORTATION IF APPROPRIATE. LUCAS Morris DCP- Discharge Planning Updated by [id number]: Janice Gore on 02/18/19 12:[address] DC PLAN: Return to [facility]. ANTICIPATED DC NEEDS: Transport back to [facility]. TIFFANIE met with patient and her , Francois Loyd, to complete initial dc planning assessment. CM educated them on the CM role and verbal consent given by Francois to complete assessment. CM verified patient's address, phone number, and emergency contact phone numbers. 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 Francois reports prior to admission to the [facility] unit she was able to ambulate without assistive devices. At discharge Francois said the patient will return to [facility] and feels this is a safe discharge. He does not want her to return to [facility]. CM faxed update to [facility] as requested. CM will continue to follow and will assist as needed with dc plans/needs. Janice Gore RN, [facility] DCPIA - Discharge Planning Initial Assessment Updated by [email or web address]: Janice Gore on 02/18/19 1:55 pm * Is the patient Alert and Oriented? No * How many steps to enter\exit or inside your home? None * PCP Dr. Angel * Pharmacy [facility] * Preadmission Environment [facility] * Facility Name [facility] * ADLs Partial Dependent * Partial ADLs (Assistance needed) Dressing Medication Management * Other Equipment reports she was able [place] ambulate [place] without assistive devises prior to admission in [facility]. * List name and contact numbers for known caregivers / representatives who currently or will assist patient after discharge: Francois Loyd - - [phone] (home) [phone] (cell) * Verbal permission to speak to the caregivers and representatives has been obtained from the patient. Yes * Community resources currently utilized None * Additional services required to return to the preadmission environment? No * Can the patient safely return to the preadmission environment? Yes * Has this patient been hospitalized within the prior 30 days at any hospital? Yes External Providers External Provider: [facility] Next Contact Date: 02/19/2019 Service Request Date: Service Type: Resolution: Reviewer: Comments: Last DP export: 02/18/19 1:31 Patient Name: ANTOINETTE LOYD Page 22556 at 0903 All edits/amendments must be made on the electronic document DICTATION DATE: 02/19/19902 FAMILY PHYSICIAN: NORAH 02/19/19902 RPT#: [id number] DC DATE: STATUS: ADM IN [facility] [address] [place] [address] END OF REPORT
--- NOTE | 2019-02-19 09:10 | MORECARE ---
CASE MANAGEMENT DISCHARGE SUMMARY PATIENT: ANTOINETTE LOYD UNIT: [id number] ADM DATE: 02/17/19 AGE: 78 : 42 SEX: F ROOM/BED: D.0256 AUTHOR: KANCHAN,DOC PHYSICIAN: REFERRING PHYSICIAN: BUD ANGEL MD DATE OF SERVICE: 02/19/19 Discharge Plan Patient Name: ANTOINETTE LOYD Facility: [facility] : 1940 Planned Disposition: Senior Living Facility Anticipated Discharge Date: 02/20/19 Discharge Date: Expected LOS: 3 Initial Reviewer: [id number] Initial Review Date: 02/17/2019 Generated: 02/19/19 10:09 am Comments DCP- Discharge Planning Updated by [id number]: Merrick Sewell on 02/19/19 8:[address] Patient Name: ANTOINETTE LOYD Encounter No: [id number] : 1940 Primary Insurance: MEDICARE A & B Anticipated DC Date: 02-20-2019 Planned Disposition: Senior Living Facility External Planned Provider: [facility], LONG TERM CARE MEDICAID BED DCP follow-up note: CM SPOKE TO DR. ANGEL WHO INFORMED CM THAT PT WILL DISCHARGE TODAY AFTER MID OR PICC LINE WITH NEED OF IV ANTIBIOTICS AT [facility]IOR [facility]ING. CM CALLED [facility], . CM PLACED ON EXTENDED HOLD. CM SPOKE TO VASCULAR ACCESS NURSE WHO INFORMED CM THAT PT HAS MIDLINE PLACED. CM FAXED UPDATE TO [facility] AT [phone]. FOR DISCHARGE, FAX DISCHARGE INFORMATION TO [facility] AT [phone]; NURSE REPORT TO BE CALLED TO [facility] AT [phone]. [facility] TO ARRANGE VAN TRANSPORTATION IF APPROPRIATE. LUCAS Morris DCP- Discharge Planning Updated by [id number]: Mrerick Sewell on 02/18/19 1:[address] Patient Name: ANTOINETTE LOYD Encounter No: [id number] : 1940 Primary Insurance: MEDICARE A & B Anticipated DC Date: 02-20-2019 Planned Disposition: Senior Living Facility External Planned Provider: [facility], RESEARCH MANAGER CARE MEDICAID BED DCP follow-up note: CM RECEIVED CALL FROM PRINCE H[facility]ILTON OF [facility] WHO VERIFIED PT IS IN [facility] CARE MEDICAID BED FROM FACILITY, UNDERSTANDS THAT FAMILY WILL NOT RETURN PT TO [facility] AT [place] AND THAT [facility] PLANS TO ACCEPT PT BACK FOR CONTINUED [facility] CARE. PRINCE ASKED FOR FAX UPDATE. CM SPOKE TO MERRITT GORE WHO ADVISED THAT UPDATE HAS BEEN FAXED TO [facility] TODAY. FOR DISCHARGE, FAX DISCHARGE INFORMATION TO [facility] AT [phone]; NURSE REPORT TO BE CALLED TO [facility] AT [phone]. [facility] TO ARRANGE VAN TRANSPORTATION IF APPROPRIATE. Merrick Sewell, CASE MANAGEMENT DCP- Discharge Planning Updated by [id number]: Janice Gore on 02/18/19 12:[address] DC PLAN: Return to [facility]. ANTICIPATED DC NEEDS: Transport back to [facility]. CM met with patient and her , Francois Loyd, to complete initial dc planning assessment. CM educated them on the CM role and verbal consent given by Francois to complete assessment. CM verified patient's address, phone number, and emergency contact phone numbers. Patient is a senior care resident at [facility]. 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 Francois reports prior to admission to the . Care unit she was able to ambulate without assistive devices. At discharge Francois said the patient will return to [facility] and feels this is a safe discharge. He does not want her to return to . Care. CM faxed update to [facility] as requested. CM will continue to follow and will assist as needed with dc plans/needs. Janice Gore RN, [facility] DCPIA - Discharge Planning Initial Assessment Updated by [id number]: Janice Gore on 02/18/19 1:55 pm * Is the patient Alert and Oriented? No * How many steps to enter\exit or inside your home? None * PCP Dr. Angel * Pharmacy intermediate pharmacy * Preadmission Environment [facility] * Facility Name [facility] * ADLs Partial Dependent * Partial ADLs (Assistance needed) Dressing Medication Management * Other Equipment reports she was able to ambulate in [place] without assistive devises prior to admission in . Care. * List name and contact numbers for known caregivers / representatives who currently or will assist patient after discharge: Francois Loyd - - [phone] (home) [phone] (cell) * Verbal permission to speak to the caregivers and representatives has been obtained from the patient. Yes * Community resources currently utilized None * Additional services required to return to the preadmission environment? No * Can the patient safely return to the preadmission environment? Yes * Has this patient been hospitalized within the prior 30 days at any hospital? Yes Last DP export: 02/19/19 8:03 Patient Name: ANTOINETTE LOYD Page 76414 at 0910 All edits/amendments must be made on the electronic document DICTATION DATE: 02/19/19908 CERTIFIED NURSES' AIDE: NORAH 02/19/19908 RPT#: [id number] DC DATE: STATUS: ADM IN [facility] [address] [place] [address] END OF REPORT
--- NOTE | 2019-02-19 09:26 | NUR ---
I TALKED TO DR GUTIERREZ AND LET HIM KNOW THAT PATIENT HAS A MIDLINE NOW. HE STATES THAT HE WILL PLACE THE DISCHARGE ORDERS.
[2019-02-19] MEDS ORDERED: MERREM 1 GM/NS 11 G1 IV (09:29)
[2019-02-19] MEDS ORDERED: FLORAJEN3 CAPS460 MG PO (09:30)
[2019-02-19] MEDS ORDERED: VANCOMYCIN 1 GM/1 G1 IV (09:30)
[2019-02-19] MEDS ORDERED: PROTONIX40 MG PO (09:31)
--- NOTE | 2019-02-19 09:55 | MORECARE ---
CASE MANAGEMENT DISCHARGE SUMMARY PATIENT: ANTOINETTE LOYD UNIT: [id number] ADM DATE: 02/17/19 AGE: 78 : 42 SEX: F ROOM/BED: D.2105 AUTHOR: KANCHAN,DOC PHYSICIAN: REFERRING PHYSICIAN: BUD ANGEL MD DATE OF SERVICE: 02/19/19 Discharge Plan Patient Name: ANTOINETTE LOYD Facility: [facility]:[place] : 1940 Planned Disposition: Shelter Facility Anticipated Discharge Date: 02/20/19 Discharge Date: Expected LOS: 3 Initial Reviewer: [id number] Initial Review Date: 02/17/2019 Generated: 02/19/19 10:55 am Comments DCP- Discharge Planning Updated by [id number]: Merrick Sewell on 02/19/19 8:[address] Patient Name: ANTOINETTE LOYD Encounter No: [id number] : 1940 Primary Insurance: MEDICARE A & B Anticipated DC Date: 02-20-2019 Planned Disposition: Shelter Facility External Planned Provider:[facility], LONG TERM CARE MEDICAID BED DCP follow-up note: CM SPOKE TO PT AND SPOUSE IN ROOM, PT CONFUSED; PT'S SPOUSE IN AGREEMENT WITH DISCHARGE TO [facility] FOR CONTINUED ANALYSIS EVALUATOR CARE AND IV ANTIBIOTICS TODAY. CM CALLED [facility], . CM NOTIFIED [facility] WHO INFORMED CM THEY WILL ACCEPT PT TO ANALYSIS EVALUATOR CARE TODAY. CM FAXED DISCHARGE INFORMATION TO [facility] AT [phone]. NURSE REPORT TO BE CALLED TO [facility] AT [phone]. PT TO TRANSPORT VIA AMBULANCE. Merrick Sewell CASE AMADA DCP- Discharge Planning Updated by [email or web address]: Merrick Sewell on 02/19/19 8:[address] Patient Name: ANTOINETTE LOYD Encounter No: [id number] : 1940 Primary Insurance: MEDICARE A & B Anticipated DC Date: 02-20-2019 Planned Disposition: Shelter Facility External Planned Provider: [facility], SENIOR LIVING CARE MEDICAID BED DCP follow-up note: CM SPOKE TO DR. ANGEL WHO INFORMED CM THAT PT WILL DISCHARGE TODAY AFTER MID OR PICC LINE WITH NEED OF IV ANTIBIOTICS AT [facility]. [facility], . CM PLACED ON EXTENDED HOLD. CM SPOKE TO VASCULAR ACCESS NURSE WHO INFORMED CM THAT PT HAS MIDLINE PLACED. CM FAXED UPDATE TO [facility] AT [phone]. FOR DISCHARGE, FAX DISCHARGE INFORMATION TO [facility] AT [phone]; NURSE REPORT [facility] BE [facility] TO [facility] AT [phone]. [facility] TO ARRANGE VAN TRANSPORTATION IF APPROPRIATE. Merrick Sewell CASE MANAGEMENT DCP- Discharge Planning Updated by [id number]: Merrick Sewell on 02/18/19 1:[address] Patient Name: ANTOINETTE LOYD Encounter No: [id number] : 1940 Primary Insurance: MEDICARE A & B Anticipated DC Date: 02-20-2019 Planned Disposition: Shelter Facility External Planned Provider: [facility], SENIOR LIVING CARE MEDICAID BED DCP follow-up note: CM RECEIVED CALL FROM PRINCE HAMILTON OF [facility] WHO VERIFIED PT IS IN SENIOR LIVING CARE MEDICAID BED FROM FACILITY, UNDERSTANDS THAT FAMILY WILL NOT RETURN PT TO NURSING HOME AT [place] AND THAT [facility] PLANS TO ACCEPT PT BACK FOR CONTINUED ANALYSIS EVALUATOR CARE. PRINCE ASKED FOR FAX UPDATE. CM SPOKE TO MERRITT GORE WHO ADVISED THAT UPDATE HAS BEEN FAXED TO [facility] TODAY. FOR DISCHARGE, FAX DISCHARGE INFORMATION TO [facility] AT [phone]; NURSE REPORT TO BE CALLED TO [facility] AT [phone]. [facility] TO ARRANGE VAN TRANSPORTATION IF APPROPRIATE. Merrick Sewell CASE MANAGEMENT DCP- Discharge Planning Updated by [id number]: Janice Gore on 02/18/19 12:[address] DC PLAN: Return to [facility]. ANTICIPATED DC NEEDS: Transport back to [facility]. TIFFANIE met with patient and her , Francois Loyd, to complete initial dc planning assessment. TIFFANIE educated them on the CM role and verbal consent given by Francois to complete assessment. TIFFANIE verified patient's address, phone number, and emergency contact phone numbers. 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 Francois reports prior to admission to the [facility] Care unit she was able to ambulate without assistive devices. At discharge Francois said the patient will return to [facility] and feels this is a safe discharge. He does not want her to return to [facility]. CM faxed update to [facility] as requested. CM will continue to follow and will assist as needed with dc plans/needs. Janice Gore RN, [facility] DCPIA - Discharge Planning Initial Assessment Updated by [email or web address]: Janice Gore on 02/18/19 1:55 pm * Is the patient Alert and Oriented? No * How many steps to enter\exit or inside your home? None * PCP Dr. Angel * [facility] * [facility]read[facility] Environment [facility] * Facility Name [facility] * ADLs Partial Dependent * Partial ADLs (Assistance needed) Dressing Medication Management * Other Equipment reports she was able [place] ambulate [place] without assistive devises prior to admission in [facility]. * List name and contact numbers for known caregivers / representatives who currently or will assist patient after discharge: Francois Loyd - - [phone] (home) [phone] (cell) * Verbal permission to speak to the caregivers and representatives has been obtained from the patient. Yes * Community resources currently utilized None * Additional services required to return to the preadmission environment? No * Can the patient safely return to the preadmission environment? Yes * Has this patient been hospitalized within the prior 30 days at any hospital? Yes Last DP export: 02/19/19 8:10 Patient Name: ANTOINETTE LOYD Page 14876 at 0955 All edits/amendments must be made on the electronic document DICTATION DATE: 02/19/19954 BAROMETERS CALIBRATOR: NORAH 02/19/19954 RPT#: [id number] DC DATE: STATUS: ADM IN [facility] [address] [place] [address] END OF REPORT
[2019-02-19 10:16] VITALS: BP 160/76
--- NOTE | 2019-02-19 10:56 | NUR ---
REPORT CALLED TO [facility], SPOKE WITH MIMI. IV REMOVED, PICC LINE PLACED PRIOR. [facility] REMOVED PRIOR TO TRANSPORT PER FACILITY REQUEST. DISCHARGE INSTRUCTIONS DISCUSSED WITH PT AND .
--- NOTE | 2019-02-19 13:45 | CN ---
PATIENT NAME:ANTOINETTE LOYD MEDICAL RECORD: [id number] : 44 LOCATION:[facility] ADMIT DATE: 02/17/19 ACCOUNT: [id number] CONSULTING PHYSICIAN: ZHENG MIRANDA MD REFERRING PHYSICIAN: BUD GUTIERREZ MD DATE OF CONSULTATION: 02/18/2019 HOSPITAL COURSE: The patient is very well known to me from an extensive inpatient stay. She has end-stage dementia, was scheduled to go to hospice when she became septic. I reviewed the chart and see no evidence of any new behaviors. If I am wrong, I would be happy to come and see her and adjust her psychoactive medications. Otherwise, I think the case management's discharge plan for discharging her to the [facility] under hospice care is reasonable and appropriate. TRANSINT:[id number] Voice Confirmation ID: [id number] DOCUMENT ID: [id number] ZHENG MIRANDA MD at 1345 CC: [id number] DICTATION DATE: 02/18/19 1606 HOSPITAL LIBRARIAN: 02/18/19 2018 ADM IN [facility] [address] [place] [address]
[2019-02-19 15:50] VITALS: BP 132/77
--- NOTE | 2019-02-19 16:47 | MORECARE ---
CASE MANAGEMENT DISCHARGE SUMMARY PATIENT: ANTOINETTE LOYD UNIT: [id number] ADM DATE: 02/17/19 AGE: 78 : 42 SEX: F ROOM/BED: D.7125 AUTHOR: KANCHAN,DOC PHYSICIAN: REFERRING PHYSICIAN: BUD ANGEL MD DATE OF SERVICE: 02/19/19 Discharge Plan Patient Name: ANTOINETTE LOYD Facility: [facility]:[place] : 1940 Planned Disposition: Senior Care Facility Anticipated Discharge Date: 02/24/19 Discharge Date: Expected LOS: 7 Initial Reviewer: [email or web address] Initial Review Date: 02/17/2019 Generated: 02/19/19 5:47 pm Comments DCP- Discharge Planning Updated by [email or web address]: Merrick Sewell on 02/19/19 3:[address] Patient Name: ANTOINETTE LOYD Encounter No: [id number] : 1940 Primary Insurance: MEDICARE A & B Anticipated DC Date: 02-24-2019 Planned Disposition: Senior Care Facility External Planned Provider: [facility], LONG TERM CARE MEDICAID BED DCP follow-up note: CM RECEIVED TELEPHONE MESSAGE FROM PRINCE AT [facility], THEY WILL NOT ACCEPT PT BACK WITHOUT [facility] SCREEN[facility] APPROVAL. MERRITT BRUNO INFORMED CM THAT PT'S SPOUSE HAS BEEN NOTIFIED OF DELAY. CM TO COMPLETE AND SUBMIT SCREENING TO [facility] SOON POSSIBLE. PT MAY NOT RETURN TO [facility] OR ANY OTHER INTERMEDIATE WITHOUT [facility] APPROVAL. LUCAS Morris DCP- Discharge Planning Updated by [id number]: Merrick Sewell on 02/19/19 8:[address] Patient Name: ANTOINETTE LOYD Encounter No: [id number] : 1940 Primary Insurance: MEDICARE A & B Anticipated DC Date: 02-20-2019 Planned Disposition: Senior Care Facility External Planned Provider:[facility], LONG TERM CARE MEDICAID BED DCP follow-up note: CM SPOKE TO PT AND SPOUSE IN ROOM, PT CONFUSED; PT'S SPOUSE IN AGREEMENT WITH DISCHARGE TO [facility] FOR CONTINUED [facility] SPECIAL[facility] CARE AND IV ANTIBIOTICS TODAY. CM CALLED [facility], . CM NOTIFIED [facility] WHO INFORMED CM THEY WILL ACCEPT PT TO BRAND SPECIALIST CARE TODAY. CM FAXED DISCHARGE INFORMATION TO [facility] AT [phone]. NURSE REPORT TO BE CALLED TO [facility] AT [phone]. PT TO TRANSPORT VIA AMBULANCE. Merrick Sewell CASE MANAGEMENT DCP- Discharge Planning Updated by [id number]: Merrick Sewell on 02/19/19 8:[address] Patient Name: ANTOINETTE LOYD Encounter No: [id number] : 1940 Primary Insurance: MEDICARE A & B Anticipated DC Date: 02-20-2019 Planned Disposition: Senior Care Facility External Planned Provider: [facility], BRAND SPECIALIST CARE MEDICAID BED DCP follow-up note: CM SPOKE TO DR. ANGEL WHO INFORMED CM THAT PT WILL DISCHARGE TODAY AFTER MID OR PICC LINE WITH NEED OF IV ANTIBIOTICS AT INTERMEDIATE. CM CALLED [facility], . CM PLACED ON EXTENDED HOLD. CM SPOKE TO VASCULAR ACCESS NURSE WHO INFORMED CM THAT PT HAS MIDLINE PLACED. CM FAXED UPDATE TO [facility] AT [phone]. FOR DISCHARGE, FAX DISCHARGE INFORMATION TO [facility] AT [phone]; NURSE REPORT TO BE CALLED TO [facility] AT [phone]. [facility] TO ARRANGE VAN TRANSPORTATION IF APPROPRIATE. LUCAS Morris MANAGEMENT DCP- Discharge Planning Updated by [id number]: Merrick Sewell on 02/18/19 1:[address] Patient Name: ANTOINETTE LOYD Encounter No: [id number] : 1940 Primary Insurance: MEDICARE A & B Anticipated DC Date: 02-20-2019 Planned Disposition: Senior Care Facility External Planned Provider: [facility], LONGTERM CARE MEDICAID BED DCP follow-up note: CM RECEIVED CALL FROM [facility]CE HAMILTON OF [facility] WHO VERIFIED PT IS IN BRAND SPECIALIST CARE MEDICAID BED FROM FACILITY, UNDERSTANDS THAT FAMILY WILL NOT RETURN PT TO [facility] AT [place] AND THAT [facility] PLANS TO ACCEPT PT BACK FOR CONTINUED BRAND SPECIALIST CARE. [facility]INCE ASKED FOR FAX UPDATE. CM SPOKE TO RN TIFFANIE GORE WHO ADVISED THAT UPDATE HAS BEEN FAXED TO [facility] TODAY. FOR DISCHARGE, FAX DISCHARGE INFORMATION TO [facility] AT [phone]; NURSE REPORT TO BE CALLED TO [facility] AT [phone]. [facility] TO ARRANGE VAN TRANSPORTATION IF APPROPRIATE. Merrick Sewell, CASE MANAGEMENT DCP- Discharge Planning Updated by [id number]: Janice Gore on 02/18/19 12:[address] DC PLAN: Return to [facility]. ANTICIPATED DC NEEDS: Transport back to [facility]. CM met with patient and her , Francois Loyd, to complete initial dc planning assessment. CM educated them on the CM role and verbal consent given by Francois to complete assessment. CM verified patient's address, phone number, and emergency contact phone numbers. Patient is a skilled nursing resident at [facility]. 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 Francois reports prior to admission to the . Care unit she was able to ambulate without assistive devices. At discharge Francois said the patient will return to [facility] and feels this is a safe discharge. He does not want her to return to . Care. CM faxed update to [facility] as requested. CM will continue to follow and will assist as needed with dc plans/needs. Janice Gore RN, [facility] DCPIA - Discharge Planning Initial Assessment Updated by [email or web address]: Janice Gore on 02/18/19 1:55 pm * Is the patient Alert and Oriented? No * How many steps to enter\exit or inside your home? None * PCP Dr. Angel * Pharmacy care home pharmacy * Preadmission Environment Senior [facility] * Facility Name [facility] * ADLs Partial Dependent * Partial ADLs (Assistance needed) Dressing Medication Management * Other Equipment reports she was able to ambulate in [place] without assistive devises prior to admission in . Care. * List name and contact numbers for known caregivers / representatives who currently or will assist patient after discharge: Francois Loyd - - [phone] (home) [phone] (cell) * Verbal permission to speak to the caregivers and representatives has been obtained from the patient. Yes * Community resources currently utilized None * Additional services required to return to the preadmission environment? No * Can the patient safely return to the preadmission environment? Yes * Has this patient been hospitalized within the prior 30 days at any hospital? Yes Last DP export: 02/19/19 8:55 Patient Name: ANTOINETTE LOYD Page 53078 at 1647 All edits/amendments must be made on the electronic document DICTATION DATE: 02/19/191646 MANAGER VALUATION: NORAH 02/19/191646 RPT#: [id number] DC DATE: STATUS: ADM IN [facility] [address] [place] [address] END OF REPORT
--- NOTE | 2019-02-19 18:05 | NUR ---
TRIED TO TURN PT AND POSITION IN BED BUT SHE BECAME UPSET THREATENING TO "KNOCK MY SOCKS OFF" IF I DIDN'T LEAVE HER ALONE.
--- NOTE | 2019-02-19 19:15 | NUR ---
REPORT RECEIVED, WILL CONTINUE POC. PATIENT IS ALERT BUT PLEASANTLY CONFUSED. AT BEDSIDE. NO S/S OF DISTRESS NOTED, RR EVEN AND UNLABORED ON ROOM AIR. PT HAS SINGLE LUMEN PICC TO LT ARM, PATENT, NS INFUSING @100ML/HR, DRSG C/D/I. PATIENT DENIES NEEDS AT THIS TIME CL IN REACH, BED LOCKED AND LOWERED, JOSE ALARM ON. WILL CTM.
[2019-02-19 20:18] VITALS: BP 125/74
[2019-02-20] VITALS: BP 146/73
--- NOTE | 2019-02-20 02:16 | NUR ---
I have reviewed this patient and I concur with the Shift Assessment completed by the Licensed Practical Nurse today this shift.
[2019-02-20 04:00] VITALS: BP 115/72
[2019-02-20 08:00] VITALS: BP 124/82
[2019-02-20 12:17] VITALS: BP 138/79
[2019-02-20 16:32] VITALS: BP 174/85
--- NOTE | 2019-02-20 16:32 | NUR ---
PT CLEANED AND LINENS CHANGED. STATLOCK CHANGED TO CLARK FOR PLACEMENT. PT POSITIONED ON RIGHT SIDE.
[2019-02-20 20:00] VITALS: BP 146/73
--- NOTE | 2019-02-20 20:23 | NUR ---
INITIAL ROUNDS COMPLETED AT 1910 HRS. PT ALERT, ORIENTED TO PERSON ONLY. HAVING A CONVERSATION WITH SOMEONE THOUGH NOBODY IN THE ROOM. ASSESSMENT COMPLETED AT 1930 HRS. IV TO L UPPER ARM MIDLINE WITH NS AT 100CC/HR. IV PATENT. IV TO LFA SL. LUNGS DIMINISHED IN BASES BILAT. LARGE BRUISE NOTED TO UPPER R ARM. IMPAIRED ROM TO BILAT HANDS AND LFA. CLARK DRAINING YELLOW URINE. REFUSES SCD'S. BED ALARM ON. SR UP X2,CALL LIGHT WITHIN REACH.
--- NOTE | 2019-02-20 21:37 | NUR ---
PM MED GIVEN IN CHOCOLATE PUDDING. PT SWALLOWED WITHOUT DIFFICULTY. PT ATE APPROX 25% OF PUDDING CUP. SR UP X2, CALL LIGHT WITHIN REACH AND BED AALRM ON.
--- NOTE | 2019-02-20 23:32 | NUR ---
PT RESTING WITH EYES CLOSED. RESP EVEN AND REGULAR. SR UP X2, CALL LIGHT WITHIN REACH AND BED ALARM ON.
[2019-02-21] VITALS: BP 121/64
--- NOTE | 2019-02-21 01:33 | NUR ---
PT AWKE; TALKING TO THE WINDOW. STATES THERE ARE PEOPLE THERE. SR UP X2, CALL LIGHT WITHIN REACH AND BED ALARM ON.
--- NOTE | 2019-02-21 03:17 | NUR ---
PT REPOSITIONED IN BED. AT BEDSIDE. SR UP X2, CALL LIGHT WITHIN REACH AND BED ALARM ON.
[2019-02-21 04:00] VITALS: BP 140/74
--- NOTE | 2019-02-21 04:19 | NUR ---
PT REPOSITIONED IN BED. AT BEDSIDE FEEDING HER ICE CREAM. SR UP X3, CALL LIGHT WITHIN REACH AND BED ALARM ON.
--- NOTE | 2019-02-21 06:08 | NUR ---
VSS THROUGHOUT NIGHT. SR PER CM. TYLENOL 650 MG PO GIVEN FOR C/O BACKACHE. NEEDS MET; WILL CONTINUE TO MONITOR.
[2019-02-21 08:55] VITALS: BP 137/69
[2019-02-21 13:48] VITALS: BP 158/78
--- NOTE | 2019-02-21 14:22 | MORECARE ---
CASE MANAGEMENT DISCHARGE SUMMARY PATIENT: ANTOINETTE LOYD UNIT: [id number] ADM DATE: 02/17/19 AGE: 78 : 42 SEX: F ROOM/BED: D.6405 AUTHOR: KANCHAN,DOC PHYSICIAN: REFERRING PHYSICIAN: BUD ANGEL MD DATE OF SERVICE: 02/21/19 Discharge Plan Patient Name: ANTOINETTE LOYD Facility: [facility]:[place] : 1940 Planned Disposition: Alf Facility Anticipated Discharge Date: 02/24/19 Discharge Date: Expected LOS: 7 Initial Reviewer: [email or web address] Initial Review Date: 02/17/2019 Generated: 02/21/19 3:22 pm Comments DCP- Discharge Planning Updated by [id number]: Merrick Sewell on 02/19/19 3:[address] Patient Name: ANTOINETTE LOYD Encounter No: [id number] : 1940 Primary Insurance: MEDICARE A & B Anticipated DC Date: 02-24-2019 Planned Disposition: Alf Facility External Planned Provider: [facility], LONG TERM CARE MEDICAID BED DCP follow-up note: CM RECEIVED TELEPHONE MESSAGE FROM PRINCE AT [facility], THEY WILL NOT ACCEPT PT BACK WITHOUT [facility] SCREENING APPROVAL. MERRITT BRUNO INFORMED CM THAT PT'S SPOUSE HAS BEEN NOTIFIED OF DELAY. CM TO COMPLETE AND SUBMIT SCREENING TO [facility] SOON POSSIBLE. PT MAY NOT RETURN TO [facility] OR ANY OTHER HALFWAY WITHOUT [facility] APPROVAL. LUCAS Morris DCP- Discharge Planning Updated by [id number]: Merrick Sewell on 02/19/19 8:[address] Patient Name: ANTOINETTE LOYD Encounter No: [id number] : 1940 Primary Insurance: MEDICARE A & B Anticipated DC Date: 02-20-2019 Planned Disposition: Alf Facility External Planned Provider:[facility], LONG TERM CARE MEDICAID BED DCP follow-up note: CM SPOKE TO PT AND SPOUSE IN ROOM, PT CONFUSED; PT'S SPOUSE IN AGREEMENT WITH DISCHARGE TO [facility] FOR CONTINUED DEICER KIT ASSEMBLER CARE AND IV ANTIBIOTICS TODAY. CM CALLED [facility], . CM NOTIFIED [facility] WHO INFORMED CM THEY WILL ACCEPT PT TO [facility]IC[facility] KIT ASSEMBLER CARE TODAY. CM FAXED DISCHARGE INFORMATION TO [facility] AT [phone]. NURSE REPORT TO BE CALLED TO [facility] AT [phone]. PT TO TRANSPORT VIA AMBULANCE. Merrick Sewell CASE MANAGEMENT DCP- Discharge Planning Updated by [id number]: Merrick Sewell on 02/19/19 8:[address] Patient Name: ANTOINETTE LOYD Encounter No: [id number] : 1940 Primary Insurance: MEDICARE A & B Anticipated DC Date: 02-20-2019 Planned Disposition: Alf Facility External Planned Provider: [facility], DEICER KIT ASSEMBLER CARE MEDICAID BED DCP follow-up note: CM SPOKE TO DR. ANGEL WHO INFORMED CM THAT PT WILL DISCHARGE TODAY AFTER MID OR PICC LINE WITH NEED OF IV ANTIBIOTICS AT HALFWAY. CM CALLED [facility], . CM PLACED ON EXTENDED HOLD. CM SPOKE TO VASCULAR ACCESS NURSE WHO INFORMED CM THAT PT HAS MIDLINE PLACED. CM FAXED UPDATE TO [facility] AT [phone]. FOR DISCHARGE, FAX DISCHARGE INFORMATION TO [facility] AT [phone]; NURSE REPORT TO BE CALLED TO [facility] AT [phone]. [facility] TO ARRANGE VAN TRANSPORTATION IF APPROPRIATE. LUCAS Morris MANAGEMENT DCP- Discharge Planning Updated by [email or web address]: Merrick Sewell on 02/18/19 1:[address] Patient Name: ANTOINETTE LOYD Encounter No: [id number] : 1940 Primary Insurance: MEDICARE A & B Anticipated DC Date: 02-20-2019 Planned Disposition: Alf Facility External Planned Provider: [facility], FPC CARE MEDICAID BED DCP follow-up note: CM RECEIVED CALL FROM [facility]TON OF [facility] WHO VERIFIED PT IS IN DEICER KIT ASSEMBLER CARE MEDICAID BED FROM FACILITY, UNDERSTANDS THAT FAMILY WILL NOT RETURN PT TO ASSISTED AT [place] AND THAT [facility] PLANS TO ACCEPT PT BACK FOR CONTINUED DEICER KIT ASSEMBLER CARE. [facility] ASKED FOR FAX UPDATE. CM SPOKE TO RN TIFFANIE GORE WHO ADVISED THAT UPDATE HAS BEEN FAXED TO [facility] TODAY. FOR DISCHARGE, FAX DISCHARGE INFORMATION TO [facility] AT [phone]; NURSE REPORT TO BE CALLED TO [facility] AT [phone]. [facility] TO ARRANGE VAN TRANSPORTATION IF APPROPRIATE. Merrick Sewell, CASE MANAGEMENT DCP- Discharge Planning Updated by [id number]: Janice Gore on 02/18/19 12:[address] DC PLAN: Return to [facility]. ANTICIPATED DC NEEDS: Transport back to [facility]. CM met with patient and her , Francois Loyd, to complete initial dc planning assessment. CM educated them on the CM role and verbal consent given by Francois to complete assessment. CM verified patient's address, phone number, and emergency contact phone numbers. Patient is a longterm resident at [facility]. 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 Francois reports prior to admission to the . Care unit she was able to ambulate without assistive devices. At discharge Francois said the patient will return to [facility] and feels this is a safe discharge. He does not want her to return to . Care. CM faxed update to [facility] as requested. CM will continue to follow and will assist as needed with dc plans/needs. Janice Gore RN, [facility] DCPIA - Discharge Planning Initial Assessment Updated by [id number]: Janice Gore on 02/18/19 1:55 pm * Is the patient Alert and Oriented? No * How many steps to enter\exit or inside your home? None * PCP Dr. Angel * Pharmacy care home pharmacy * Preadmission Environment [facility] * Facility Name [facility] * ADLs Partial Dependent * Partial ADLs (Assistance needed) Dressing Medication Management * Other Equipment reports she was able to ambulate in [place] without assistive devises prior to admission in . Care. * List name and contact numbers for known caregivers / representatives who currently or will assist patient after discharge: Francois Loyd - - [phone] (home) [phone] (cell) * Verbal permission to speak to the caregivers and representatives has been obtained from the patient. Yes * Community resources currently utilized None * Additional services required to return to the preadmission environment? No * Can the patient safely return to the preadmission environment? Yes * Has this patient been hospitalized within the prior 30 days at any hospital? Yes External Providers External Provider: ADRIANNE Story Next Contact Date: 02/21/2019 Service Request Date: Service Type: Resolution: Reviewer: Comments: Last DP export: 02/19/19 3:47 Patient Name: ANTOINETTE LOYD Page 97568 at 1422 All edits/amendments must be made on the electronic document DICTATION DATE: 02/21/191421 CARTOON ARTIST: NORAH 02/21/191421 RPT#: [id number] DC DATE: STATUS: ADM IN [facility] [address] [place] [address] END OF REPORT
--- NOTE | 2019-02-21 15:14 | MORECARE ---
CASE MANAGEMENT DISCHARGE SUMMARY PATIENT: ANTOINETTE LOYD UNIT: [id number] ADM DATE: 02/17/19 AGE: 78 : 42 SEX: F ROOM/BED: D.2106 AUTHOR: KANCHAN,DOC PHYSICIAN: REFERRING PHYSICIAN: BUD ANGEL MD DATE OF SERVICE: 02/21/19 Discharge Plan Patient Name: ANTOINETTE LOYD Facility: [facility]:[place] : 1940 Planned Disposition: Long-Term Facility Anticipated Discharge Date: 02/24/19 Discharge Date: Expected LOS: 7 Initial Reviewer: [email or web address] Initial Review Date: 02/17/2019 Generated: 02/21/19 4:13 pm Comments DCP- Discharge Planning Updated by [id number]: Merrick Sewell on 02/21/19 2:[address] Patient Name: ANTOINETTE LOYD Encounter No: [id number] : 1940 Primary Insurance: MEDICARE A & B Anticipated DC Date: 02-24-2019 Planned Disposition: Long-Term Facility External Planned Provider:[facility], LONG TERM CARE MEDICAID BED DCP follow-up note: CM SPOKE TO DR. ANGEL AND PT'S SPOUSE IN ROOM. BOTH UPDATED ON NEED FOR [facility] S[facility]EN[facility] PER FACILITY AND THAT [facility] WILL NOT REOPEN FOR SCREENING UNTIL 02-24-19. DR. ANGEL SIGNED [facility]. CM SUBMITTED SCREENING TO [facility]. CM WAITING [facility] SCREENING DETERMINATION. PT MAY NOT RETURN TO [facility] OR ANY OTHER [facility] WITHOUT [facility] APPROVAL. Merrick Sewell, CASE MANAGEMENT DCP- Discharge Planning Updated by [email or web address]: Merrick Sewell on 02/19/19 3:[address] Patient Name: ANTOINETTE LOYD Encounter No: [id number] : 1940 Primary Insurance: MEDICARE A & B Anticipated DC Date: 02-24-2019 Planned Disposition: Long-Term Facility External Planned Provider: [facility], LONG TERM CARE MEDICAID BED DCP follow-up note: CM RECEIVED TELEPHONE MESSAGE FROM PRINCE AT [facility], THEY WILL NOT ACCEPT PT BACK WITHOUT [facility] SCREENING APPROVAL. MERRITT MORENO HOUSE INFORMED CM THAT PT'S SPOUSE HAS BEEN NOTIFIED OF DELAY. CM TO COMPLETE AND SUBMIT SCREENING TO [facility] SOON POSSIBLE. PT MAY NOT RETURN TO [facility] OR ANY OTHER [facility] WITHOUT [facility] APPROVAL. LUCAS Morris DCP- Discharge Planning Updated by [email or web address]: Merrick Sewell on 02/19/19 8:[address] Patient Name: ANTOINETTE LOYD Encounter No: [id number] : 1940 Primary Insurance: MEDICARE A & B Anticipated DC Date: 02-20-2019 Planned Disposition: Long-Term Facility External Planned Provider:[facility], MCC CARE MEDICAID BED DCP follow-up note: CM SPOKE TO PT AND SPOUSE IN ROOM, PT CONFUSED; PT'S SPOUSE IN AGREEMENT WITH DISCHARGE TO [facility] FOR CONTINUED MCC CARE AND IV ANTIBIOTICS TODAY. CM CALLED [facility], . CM NOTIFIED [facility] WHO INFORMED CM THEY WILL ACCEPT PT TO [facility] TODAY. CM FAXED DISCHARGE INFORMATION TO [facility] AT [phone]. NURSE REPORT TO BE CALLED TO [facility] AT [phone]. PT TO TRANSPORT VIA AMBULANCE. LUCAS Morris DCP- Discharge Planning Updated by [email or web address]: Merrick Sewell on 02/19/19 8:[address] Patient Name: ANTOINETTE LOYD Encounter No: [id number] : 1940 Primary Insurance: MEDICARE A & B Anticipated DC Date: 02-20-2019 Planned Disposition: Long-Term Facility External Planned Provider: [facility], UI SOFTWARE ENGINEER CARE MEDICAID BED DCP follow-up note: CM SPOKE TO DR. ANGEL WHO INFORMED CM THAT PT WILL DISCHARGE TODAY AFTER MID OR PICC LINE WITH NEED OF IV ANTIBIOTICS AT [facility]. CM CALLED [facility], . CM PLACED ON EXTENDED HOLD. CM SPOKE TO VASCULAR ACCESS NURSE WHO INFORMED CM THAT PT HAS MIDLINE PLACED. CM FAXED UPDATE TO [facility] AT [phone]. FOR DISCHARGE, FAX DISCHARGE INFORMATION TO [facility] AT [phone]; NURSE REPORT TO BE CALLED TO [facility] AT [phone]. [facility] TO ARRANGE VAN TRANSPORTATION IF APPROPRIATE. Merrick Donato, CASE MANAGEMENT DCP- Discharge Planning Updated by [id number]: Merrick Sewell on 02/18/19 1:[address] Patient Name: ANTOINETTE LOYD Encounter No: [id number] : 1940 Primary Insurance: MEDICARE A & B Anticipated DC Date: 02-20-2019 Planned Disposition: Long-Term Facility External Planned Provider: [facility], UI SOFTWARE ENGINEER CARE MEDICAID BED DCP follow-up note: CM RECEIVED CALL FROM PRINCE HAMILTON OF [facility] WHO VERIFIED PT IS IN MCC CARE MEDICAID BED FROM FACILITY, UNDERSTANDS THAT FAMILY WILL NOT RETURN PT TO CARE HOME AT [place] AND THAT [facility] PLANS TO ACCEPT PT BACK FOR CONTINUED [facility] C[facility]. [facility] ASKED FOR FAX UPDATE. TIFFANIE SPOKE TO MERRITT GORE WHO ADVISED THAT UPDATE HAS BEEN FAXED TO [facility] TODAY. FOR DISCHARGE, FAX DISCHARGE INFORMATION TO [facility] AT [phone]; NURSE REPORT TO BE CALLED TO [facility] AT [phone]. [facility] TO ARRANGE VAN TRANSPORTATION IF APPROPRIATE. LUCAS Morris MANAGEMENT DCP- Discharge Planning Updated by [email or web address]: Janice Gore on 02/18/19 12:[address] DC PLAN: Return to [facility]. ANTICIPATED DC NEEDS: Transport back to [facility]. TIFFANIE met with patient and her , Francois Loyd, to complete initial dc planning assessment. TIFFANIE educated them on the CM role and verbal consent given by Francois to complete assessment. CM verified patient's address, phone number, and emergency contact phone numbers. 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 Francois reports prior to admission to the [facility] Care unit she was able to ambulate without assistive devices. At discharge Francois said the patient will return to [facility] and feels this is a safe discharge. He does not want her to return to [facility] Care. CM faxed update to [facility] as requested. CM will continue to follow and will assist as needed with dc plans/needs. Janice Gore RN, [facility] DCPIA - Discharge Planning Initial Assessment Updated by [id number]: Janice Gore on 02/18/19 1:55 pm * Is the patient Alert and Oriented? No * How many steps to enter\exit or inside your home? None * PCP Dr. Angel * Pharmacy assisted pharmacy * Preadmission Environment Nursing [facility] * Facility Name [facility] * ADLs Partial Dependent * Partial ADLs (Assistance needed) Dressing Medication Management * Other Equipment reports she was able to ambulate in [place] without assistive devises prior to admission in [facility]. * List name and contact numbers for known caregivers / representatives who currently or will assist patient after discharge: Francois Loyd - - [phone] (home) [phone] (cell) * Verbal permission to speak to the caregivers and representatives has been obtained from the patient. Yes * Community resources currently utilized None * Additional services required to return to the preadmission environment? No * Can the patient safely return to the preadmission environment? Yes * Has this patient been hospitalized within the prior 30 days at any hospital? Yes Last DP export: 02/21/19 1:22 Patient Name: ANTOINETTE LOYD Page 96891 at 1514 All edits/amendments must be made on the electronic document DICTATION DATE: 02/21/191512 LADLE MECHANIC: NORAH 02/21/191512 RPT#: [id number] DC DATE: STATUS: ADM IN [facility] [address] [place] [address] END OF REPORT
[2019-02-21 16:42] VITALS: BP 151/83
--- NOTE | 2019-02-21 17:02 | NUR ---
I have reviewed this patient and I concur with the Shift Assessment completed by the Licensed Practical Nurse today this shift.
--- NOTE | 2019-02-21 19:29 | NUR ---
RECEIVED BEDSIDE REPORT. PATIENT IS ALERT AND ORIENTED, RESTING COMFORTABLY IN BED. RESPIRATIONS ARE EVEN AND UNLABORED. NO S/S OF DISTRESS. NO C/O PAIN. CALL LIGHT WITHIN REACH. WILL CPOC.
[2019-02-21 20:00] VITALS: BP 152/66
[2019-02-22] VITALS: BP 141/68
--- NOTE | 2019-02-22 00:17 | NUR ---
PATIENT RESTING IN COMFORTABLY IN BED. RESPIRATIONS ARE EVEN AND UNLABORD. NO S/S OF DISTRESS. NO C/O PAIN. CALL LIGHT WITHIN REACH. WILL CPOC.
--- NOTE | 2019-02-22 07:30 | NUR ---
PT A/A/OX1 TO PERSON ONLY. RESTING QUIETLY IN BED WITH AT BEDSIDE. MIDLINE IV PATENT TO LEFT UPPER ARM WITHOUT REDNESS OR EDEMA. CLARK PATENT AND DRAINAING LIGHT YELLOW COLORED URINE.
[2019-02-22 09:23] VITALS: BP 135/75
--- NOTE | 2019-02-22 11:46 | NUR ---
CLARK REMOVED ORDERED BY DR. GUTIERREZ. TOLERATED WELL. 200 CC LIGHT YELLOW URINE IN BAG.
[2019-02-22 13:25] VITALS: BP 153/71
--- NOTE | 2019-02-22 15:00 | NUR ---
ASSISTED PATIENT ONTO BEDPAN. NO FAMILY AT BEDSIDE. RESP EVEN AND UNLABORED. PATIENT IS CONFUSED AND HOLLORING OUT INSTEAD OF USING CALL LIGHT. PATIENT DENIES ANY OTHER NEEDS. PUREWICK PRESENT, BUT PATIENT WANTED BEDPAN.
[2019-02-22 16:26] VITALS: BP 129/68
--- NOTE | 2019-02-22 19:15 | NUR ---
RECEIVED REPORT, WILL ASSUME CARE OF PT, SLEEPING, NO DISTRESS NOTICED AT THIS TIME, BED IS LOW, SRX3, CALL LIGHT IN REACH, BED ALARM IS ON, WILL CONTINUE PLAN OF CARE
[2019-02-22 20:00] VITALS: BP 156/62
[2019-02-22 22:00] VITALS: BP 151/72
[2019-02-23 04:00] VITALS: BP 128/58
--- NOTE | 2019-02-23 04:23 | NUR ---
PT HAS BEEN RESTLESS ALL NIGHT, SHE THINKS SHE IS AT HOME, TRIED TO TELL HER SHE WAS IN HOSPITAL, SHE SAID NO I AM AT HOME AND I NEED TO COOK
[2019-02-23 04:42] LABS: BASOPHILS 0.2 % (0-2); EOSINOPHILS 2.9 % (0-7); HEMATOCRIT 36.1 % (36.0-48.0); HEMOGLOBIN 11.8 g/dL (12-16); IMMATURE GRANULOCYTES 1.2 % (0-5); LYMPHOCYTES 20.9 % (15-50); MCH 30.5 pg (26.0-34.0); MCHC 32.7 g/dL (31.0-37.0); MCV 93.3 fL (80.0-100.0); MEAN PLATELET VOLUME 9.7 fL (7.4-10.4); NEUTROPHILS 60.8 % (40-80); RBC 3.87 10x6/uL (4.00-5.40)
[2019-02-23 04:43] LABS: PLATELET COUNT 349 10x3/uL (130-400)
[2019-02-23 05:07] LABS: CALC OSMOLALITY 270 mosm/kg (275-300); CALCIUM 8.8 mg/dL (8.5-10.1); CARBON DIOXIDE 23.3 mmol/L (21.0-32.0); CHLORIDE - SERUM 104 mmol/L (98-107); CREATININE - SERUM 0.7 mg/dL (0.6-1.3); GLUCOSE 85 mg/dL (74-106); POTASSIUM - SERUM 4.2 mmol/L (3.5-5.1); SODIUM 135 mmol/L (136-145); UREA NITROGEN 17 mg/dL (7-18); eGFR NON AFRICAN AMERICAN 86 mL/min (90-120)
--- NOTE | 2019-02-23 06:54 | NUR ---
I have reviewed this patient and I concur with the Shift Assessment completed by the Licensed Practical Nurse today this shift.
--- NOTE | 2019-02-23 07:15 | NUR ---
RECIEVE REPORT. SLEEPING IN BED WITH EYES CLOSED. RESPIRATIONS NONLABORED. NO SIGNS OF DISTRESS. SPOUSE AT BEDSIDE. DENIES ANY NEEDS AT THIS TIME. CONTINUE PLAN OF CARE AND SAFETY PRECAUTIONS.
[2019-02-23 08:29] VITALS: BP 154/86
[2019-02-23 12:07] VITALS: BP 115/64
[2019-02-23 16:21] VITALS: BP 127/77
--- NOTE | 2019-02-23 17:40 | NUR ---
ALERT AND CONFUSED X3. RESTING IN BED. SPOUSE AT BEDSIDE. REFUSE TO EAT DINNER. IV INFUSING ORDERED. DENIES ANY NEEDS AT THIS TIME. CONTINUE PLAN OF CARE AND SAFETY PRECAUTIONS.
--- NOTE | 2019-02-23 19:22 | NUR ---
PT IN BED WITH PRESENT PT IS CONFUSED BED LOW AND LOCKED CALL LIGHT IN REACH
[2019-02-23 20:00] VITALS: BP 129/74
[2019-02-24] VITALS: BP 154/73
--- NOTE | 2019-02-24 03:34 | NUR ---
I have reviewed this patient and I concur with the Shift Assessment completed by the Licensed Practical Nurse today this shift.
[2019-02-24 04:00] VITALS: BP 134/78
--- NOTE | 2019-02-24 06:44 | MORECARE ---
CASE MANAGEMENT DISCHARGE SUMMARY PATIENT: ANTOINETTE LOYD UNIT: [id number] ADM DATE: 02/17/19 AGE: 78 : 42 SEX: F ROOM/BED: D.7751 AUTHOR: KANCHAN,DOC PHYSICIAN: REFERRING PHYSICIAN: BUD ANGEL MD DATE OF SERVICE: 02/24/19 Discharge Plan Patient Name: ANTOINETTE LOYD Facility: [facility]:[place] : 1940 Planned Disposition: Senior Living Facility Anticipated Discharge Date: 02/24/19 Discharge Date: Expected LOS: 7 Initial Reviewer: [id number] Initial Review Date: 02/17/2019 Generated: 02/24/19 7:43 am Comments DCP- Discharge Planning Updated by [id number]: Merrick Sewell on 02/24/19 5:[address] Patient Name: ANTOINETTE LOYD Encounter No: [id number] : 1940 Primary Insurance: MEDICARE A & B Anticipated DC Date: 02-24-2019 Planned Disposition: Senior Living Facility External Planned Provider: [facility], LONG TERM CARE MEDICAID BED DCP follow-up note: CM FAXED UPDATE TO [facility], . CM WAITING [facility] SCREENING DETERMINATION. PT MAY NOT RETURN TO [facility] OR ANY OTHER [facility] WITHOUT [facility] APPROVAL. Merrick Sewell CASE MANAGEMENT DCP- Discharge Planning Updated by [id number]: Merrick Sewell on 02/21/19 2:[address] Patient Name: ANTOINETTE LOYD Encounter No: [id number] : 1940 Primary Insurance: MEDICARE A & B Anticipated DC Date: 02-24-2019 Planned Disposition: Senior Living Facility External Planned Provider:[facility], LONG TERM CARE MEDICAID BED DCP follow-up note: CM SPOKE TO DR. ANGEL AND PT'S SPOUSE IN ROOM. BOTH UPDATED ON NEED FOR [facility] SCREENING PER FACILITY AND THAT [facility] WILL NOT REOPEN FOR SCREENING UNTIL 02-24-19. DR. ANGEL SIGNED [facility]. CM SUBMITTED SCREENING TO [facility]. CM WAITING [facility] SCREENING DETERMINATION. PT MAY NOT RETURN TO [facility] OR ANY OTHER [facility] WITHOUT [facility] APPROVAL. LUCAS Morris DCP- Discharge Planning Updated by [email or web address]: Merrick Sewell on 02/19/19 3:[address] Patient Name: ANTOINETTE LOYD Encounter No: [id number] : 1940 Primary Insurance: MEDICARE A & B Anticipated DC Date: 02-24-2019 Planned Disposition: Senior Living Facility External Planned Provider: [facility], LONG TERM CARE MEDICAID BED DCP follow-up note: CM RECEIVED TELEPHONE MESSAGE FROM PRINCE AT [facility], THEY WILL NOT ACCEPT PT BACK WITHOUT [facility] SCREENING APPROVAL. MERRITT BRUNO INFORMED CM THAT PT'S SPOUSE HAS BEEN NOTIFIED OF DELAY. CM TO COMPLETE AND SUBMIT SCREENING TO [facility] SOON POSSIBLE. PT MAY NOT RETURN TO [facility] OR ANY OTHER [facility] WITHOUT [facility] APPROVAL. LUCAS Morris DCP- Discharge Planning Updated by [email or web address]: Merrick Sewell on 02/19/19 8:[address] Patient Name: ANTOINETTE LOYD Encounter No: [id number] : 1940 Primary Insurance: MEDICARE A & B Anticipated DC Date: 02-20-2019 Planned Disposition: Senior Living Facility External Planned Provider:[facility], LONG TERM CARE MEDICAID BED DCP follow-up note: CM SPOKE TO PT AND SPOUSE IN ROOM, PT CONFUSED; PT'S SPOUSE IN AGREEMENT WITH DISCHARGE TO [facility] FOR CONTINUED HAND TRIMMER CARE AND IV ANTIBIOTICS TODAY. CM CALLED [facility], . CM NOTIFIED [facility] WHO INFORMED CM THEY WILL ACCEPT PT TO HAND TRIMMER CARE TODAY. CM FAXED DISCHARGE INFORMATION TO [facility] AT [phone]. NURSE REPORT TO BE CALLED TO [facility] AT [phone]. PT TO TRANSPORT VIA AMBULANCE. LUCAS Morris DCP- Discharge Planning Updated by [id number]: Merrick Sewell on 02/19/19 8:[address] Patient Name: ANTOINETTE LOYD Encounter No: [id number] : 1940 Primary Insurance: MEDICARE A & B Anticipated DC Date: 02-20-2019 Planned Disposition: Senior Living Facility External Planned Provider: [facility], LONG TERM CARE MEDICAID BED DCP follow-up note: CM SPOKE TO DR. ANGEL WHO INFORMED CM THAT PT WILL DISCHARGE TODAY AFTER MID OR PICC LINE WITH NEED OF IV ANTIBIOTICS AT [facility]. CM CALLED [facility], . CM PLACED ON EXTENDED HOLD. CM SPOKE TO VASCULAR ACCESS NURSE WHO INFORMED CM THAT PT HAS MIDLINE PLACED. CM FAXED UPDATE TO [facility] AT [phone]. FOR DISCHARGE, FAX DISCHARGE INFORMATION TO [facility] AT [phone]; NURSE REPORT TO BE CALLED TO [facility] AT [phone]. [facility] TO ARRANGE VAN TRANSPORTATION IF APPROPRIATE. LUCAS Morris MANAGEMENT DCP- Discharge Planning Updated by [email or web address]: Merrick Sewell on 02/18/19 1:[address] Patient Name: ANTOINETTE LOYD Encounter No: [id number] : 1940 Primary Insurance: MEDICARE A & B Anticipated DC Date: 02-20-2019 Planned Disposition: Senior Living Facility External Planned Provider: [facility], SENIOR CARE CARE MEDICAID BED DCP follow-up note: CM RECEIVED CALL FROM PRINCE HAMILTON OF [facility] WHO VERIFIED PT IS IN SENIOR CARE CARE MEDICAID BED FROM FACILITY, UNDERSTANDS THAT FAMILY WILL NOT RETURN PT TO LONG-TERM AT [place] AND THAT [facility] PLANS TO ACCEPT PT BACK FOR CONTINUED SENIOR CARE CARE. PRINCE ASKED FOR FAX UPDATE. CM SPOKE TO MERRITT GORE WHO ADVISED THAT UPDATE HAS BEEN FAXED TO [facility] TODAY. FOR DISCHARGE, FAX DISCHARGE INFORMATION TO [facility] AT [phone]; NURSE REPORT TO BE CALLED TO [facility] AT [phone]. [facility] TO ARRANGE VAN TRANSPORTATION IF APPROPRIATE. Merrick Sewell CASE MANAGEMENT DCP- Discharge Planning Updated by [id number]: Janice Gore on 02/18/19 12:[address] DC PLAN: Return to [facility]. ANTICIPATED DC NEEDS: Transport back to [facility]. CM met with patient and her , Francois Loyd, to complete initial dc planning assessment. CM educated them on the CM role and verbal consent given by Francois to complete assessment. CM verified patient's address, phone number, and emergency contact phone numbers. 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 Francois reports prior to admission to the [facility] Care unit she was able to ambulate without assistive devices. At discharge Francois said the patient will return to [facility] and feels this is a safe discharge. He does not want her to return to [facility]. CM faxed update to [facility] as requested. CM will continue to follow and will assist as needed with dc plans/needs. Janice Gore RN, [facility] DCPIA - Discharge Planning Initial Assessment Updated by [email or web address]: Janice Gore on 02/18/19 1:55 pm * Is the patient Alert and Oriented? No * How many steps to enter\exit or inside your home? None * PCP Dr. Angel * Pharmacy care home pharmacy * Preadmission Environment [facility] * Facility Name [facility] * ADLs Partial Dependent * Partial ADLs (Assistance needed) Dressing Medication Management * Other Equipment reports she was able to ambulate in [place] without assistive devises prior to admission in [facility]. * List name and contact numbers for known caregivers / representatives who currently or will assist patient after discharge: Francois Loyd - - [phone] (home) [phone] (cell) * Verbal permission to speak to the caregivers and representatives has been obtained from the patient. Yes * Community resources currently utilized None * Additional services required to return to the preadmission environment? No * Can the patient safely return to the preadmission environment? Yes * Has this patient been hospitalized within the prior 30 days at any hospital? Yes Last DP export: 02/21/19 2:14 Patient Name: ANTOINETTE LOYD Page [id number] at 0644 All edits/amendments must be made on the electronic document DICTATION DATE: 02/24/19642 RN TEAM LEADER: NORAH 02/24/19642 RPT#: [id number] DC DATE: STATUS: ADM IN [facility] [address] [place] [address] END OF REPORT
--- NOTE | 2019-02-24 06:56 | MORECARE ---
CASE MANAGEMENT DISCHARGE SUMMARY PATIENT: ANTOINETTE LOYD UNIT: [id number] ADM DATE: 02/17/19 AGE: 78 : 42 SEX: F ROOM/BED: D.3469 AUTHOR: KANCHAN,DOC PHYSICIAN: REFERRING PHYSICIAN: BUD ANGEL MD DATE OF SERVICE: 02/24/19 Discharge Plan Patient Name: ANTOINETTE LOYD Facility: [facility]:[place] : 1940 Planned Disposition: Penitentiary Facility Anticipated Discharge Date: 02/24/19 Discharge Date: Expected LOS: 7 Initial Reviewer: [id number] Initial Review Date: 02/17/2019 Generated: 02/24/19 7:56 am Comments DCP- Discharge Planning Updated by [id number]: Merrick Sewell on 02/24/19 5:[address] Patient Name: ANTOINETTE LOYD Encounter No: [id number] : 1940 Primary Insurance: MEDICARE A & B Anticipated DC Date: 02-24-2019 Planned Disposition: Penitentiary Facility External Planned Provider: [facility], LONG TERM CARE MEDICAID BED DCP follow-up note: CM FAXED UPDATE TO [facility], . CM WAITING [facility] SCREENING DETERMINATION. PT MAY NOT RETURN TO [facility] OR ANY OTHER [facility] WITHOUT [facility] APPROVAL. Merrick Sewell CASE MANAGEMENT DCP- Discharge Planning Updated by [id number]: Merrick Sewell on 02/21/19 2:[address] Patient Name: ANTOINETTE LOYD Encounter No: [id number] : 1940 Primary Insurance: MEDICARE A & B Anticipated DC Date: 02-24-2019 Planned Disposition: Penitentiary Facility External Planned Provider:[facility], LONG TERM CARE MEDICAID BED DCP follow-up note: CM SPOKE TO DR. ANGEL AND PT'S SPOUSE IN ROOM. BOTH UPDATED ON NEED FOR [facility] SCREENING PER FACILITY AND THAT [facility] WILL NOT REOPEN FOR SCREENING UNTIL 02-24-19. DR. ANGEL SIGNED [facility]. CM SUBMITTED SCREENING TO [facility]. CM WAITING [facility] SCREENING DETERMINATION. PT MAY NOT RETURN TO [facility] OR ANY OTHER [facility] WITHOUT [facility] APPROVAL. LUCAS Morris DCP- Discharge Planning Updated by [email or web address]: Merrick Sewell on 02/19/19 3:[address] Patient Name: ANTOINETTE LOYD Encounter No: [id number] : 1940 Primary Insurance: MEDICARE A & B Anticipated DC Date: 02-24-2019 Planned Disposition: Penitentiary Facility External Planned Provider: [facility], LONG TERM CARE MEDICAID BED DCP follow-up note: CM RECEIVED TELEPHONE MESSAGE FROM PRINCE AT [facility], THEY WILL NOT ACCEPT PT BACK WITHOUT [facility] SCREENING APPROVAL. MERRITT BRUNO INFORMED CM THAT PT'S SPOUSE HAS BEEN NOTIFIED OF DELAY. CM TO COMPLETE AND SUBMIT SCREENING TO [facility] SOON POSSIBLE. PT MAY NOT RETURN TO [facility] OR ANY OTHER [facility] WITHOUT [facility] APPROVAL. LUCAS Morris DCP- Discharge Planning Updated by [id number]: Merrick Sewell on 02/19/19 8:[address] Patient Name: ANTOINETTE LOYD Encounter No: [id number] : 1940 Primary Insurance: MEDICARE A & B Anticipated DC Date: 02-20-2019 Planned Disposition: Penitentiary Facility External Planned Provider:[facility], LONG TERM CARE MEDICAID BED DCP follow-up note: CM SPOKE TO PT AND SPOUSE IN ROOM, PT CONFUSED; PT'S SPOUSE IN AGREEMENT WITH DISCHARGE TO [facility] FOR CONTINUED LICENSED PSYCHOLOGIST CARE AND IV ANTIBIOTICS TODAY. CM CALLED [facility], . CM NOTIFIED CHUCHO WHO INFORMED CM THEY WILL ACCEPT PT TO LICENSED PSYCHOLOGIST CARE TODAY. CM FAXED DISCHARGE INFORMATION TO [facility] AT [phone]. NURSE REPORT TO BE CALLED TO [facility] AT [phone]. PT TO TRANSPORT VIA AMBULANCE. LUCAS Morris DCP- Discharge Planning Updated by [id number]: Merrick Sewell on 02/19/19 8:[address] Patient Name: ANTOINETTE LYOD Encounter No: [id number] : 1940 Primary Insurance: MEDICARE A & B Anticipated DC Date: 02-20-2019 Planned Disposition: Penitentiary Facility External Planned Provider: [facility], LONG TERM CARE MEDICAID BED DCP follow-up note: CM SPOKE TO DR. ANGEL WHO INFORMED CM THAT PT WILL DISCHARGE TODAY AFTER MID OR PICC LINE WITH NEED OF IV ANTIBIOTICS AT [facility]. CM CALLED [facility], . CM PLACED ON EXTENDED HOLD. CM SPOKE TO VASCULAR ACCESS NURSE WHO INFORMED CM THAT PT HAS MIDLINE PLACED. CM FAXED UPDATE TO [facility] AT [phone]. FOR DISCHARGE, FAX DISCHARGE INFORMATION TO [facility] AT [phone]; NURSE REPORT TO BE CALLED TO [facility] AT [phone]. [facility] TO ARRANGE VAN TRANSPORTATION IF APPROPRIATE. LUCAS Morris MANAGEMENT DCP- Discharge Planning Updated by [email or web address]: Merrick Sewell on 02/18/19 1:[address] Patient Name: ANTOINETTE LOYD Encounter No: [id number] : 1940 Primary Insurance: MEDICARE A & B Anticipated DC Date: 02-20-2019 Planned Disposition: Penitentiary Facility External Planned Provider: [facility], [facility] CARE MEDICAID BED DCP follow-up note: CM RECEIVED CALL FROM PRINCE HAMILTON OF [facility] WHO VERIFIED PT IS IN [facility] CARE MEDICAID BED FROM FACILITY, UNDERSTANDS THAT FAMILY WILL NOT RETURN PT TO LONGTERM AT [place] AND THAT [facility] PLANS TO ACCEPT PT BACK FOR CONTINUED [facility] CARE. PRINCE ASKED FOR FAX UPDATE. CM SPOKE TO MERRITT GORE WHO ADVISED THAT UPDATE HAS BEEN FAXED TO [facility] TODAY. FOR DISCHARGE, FAX DISCHARGE INFORMATION TO [facility] AT [phone]; NURSE REPORT TO BE CALLED TO [facility] AT [phone]. [facility] TO ARRANGE VAN TRANSPORTATION IF APPROPRIATE. Merrick Sewell CASE MANAGEMENT DCP- Discharge Planning Updated by [id number]: Janice Gore on 02/18/19 12:[address] DC PLAN: Return to [facility]. ANTICIPATED DC NEEDS: Transport back to [facility]. CM met with patient and her , Francois Loyd, to complete initial dc planning assessment. CM educated them on the CM role and verbal consent given by Francois to complete assessment. CM verified patient's address, phone number, and emergency contact phone numbers. 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 Francois reports prior to admission to the [facility] Care unit she was able to ambulate without assistive devices. At discharge Francois said the patient will return to [facility] and feels this is a safe discharge. He does not want her to return to [facility]. CM faxed update to [facility] as requested. CM will continue to follow and will assist as needed with dc plans/needs. Janice Gore RN, [facility] DCPIA - Discharge Planning Initial Assessment Updated by [email or web address]: Janice Gore on 02/18/19 1:55 pm * Is the patient Alert and Oriented? No * How many steps to enter\exit or inside your home? None * PCP Dr. Angel * Pharmacy assisted pharmacy * Preadmission Environment [facility] * Facility Name [facility] * ADLs Partial Dependent * Partial ADLs (Assistance needed) Dressing Medication Management * Other Equipment reports she was able to ambulate in [place] without assistive devises prior to admission in [facility]. * List name and contact numbers for known caregivers / representatives who currently or will assist patient after discharge: Francois Loyd - - [phone] (home) [phone] (cell) * Verbal permission to speak to the caregivers and representatives has been obtained from the patient. Yes * Community resources currently utilized None * Additional services required to return to the preadmission environment? No * Can the patient safely return to the preadmission environment? Yes * Has this patient been hospitalized within the prior 30 days at any hospital? Yes Last DP export: 02/24/19 5:44 a Patient Name: ANTOINETTE LOYD Page [id number] Electronically Signed by [facility] on 02/24/19 at 0656 All edits/amendments must be made on the electronic document DICTATION DATE: 02/24/19655 HOMEMAKER COMPANION: NORAH 02/24/19655 RPT#: [id number] DC DATE: STATUS: ADM IN [facility] [address] [place] [address] END OF REPORT
[2019-02-24 08:17] VITALS: BP 144/80
--- NOTE | 2019-02-24 08:55 | NUR ---
PATIENT IS SITTING UP IN BED. SHE DENIES ANY NEEDS AT THIS TIME. AT BEDSIDE.
--- NOTE | 2019-02-24 09:33 | MORECARE ---
CASE MANAGEMENT DISCHARGE SUMMARY PATIENT: ANTOINETTE LOYD UNIT: [id number] ADM DATE: 02/17/19 AGE: 78 : 42 SEX: F ROOM/BED: D.9273 AUTHOR: KANCHAN,DOC PHYSICIAN: REFERRING PHYSICIAN: BUD ANGEL MD DATE OF SERVICE: 02/24/19 Discharge Plan Patient Name: ANTOINETTE LOYD Facility: [facility] : 1940 Planned Disposition: Jail Facility Anticipated Discharge Date: 02/24/19 Discharge Date: Expected LOS: 7 Initial Reviewer: [id number] Initial Review Date: 02/17/2019 Generated: 02/24/19 10:32 am Comments DCP- Discharge Planning Updated by [id number]: Merrick Sewell on 02/24/19 8:[address] Patient Name: ANTOINETTE LOYD Encounter No: [id number] : 1940 Primary Insurance: MEDICARE A & B Anticipated DC Date: 02-24-2019 Planned Disposition: Jail Facility External Planned Provider: [facility], SENIOR LIVING CARE MEDICAID BED DCP follow-up note: CM FAXED UPDATE TO [facility], . CM WAITING ROMIE SCREENING DETERMINATION. PT MAY NOT RETURN TO [facility] OR ANY OTHER CUSTODIAL WITHOUT ROMIE APPROVAL. Merrick Sewell CASE MANAGEMENT Appended by Merrick Sewell on 02/24/2019 9:28 DIRECT MARKETING INTERN: CM PROVIDED AND DISCUSSED IMPORTANT MESSAGE FROM MEDICARE WITH PT'S SPOUSE. PT'S SPOUSE WOULD LIKE PT RETURNED TO [facility] SOON POSSIBLE. CM EXPLAINED DELAY IN RECEIVING ROMIE RESPONSE DUE TO STATE HOLIDAY SCHEDULE. CM WAITING ROMIE SCREENING DETERMINATION. PT MAY NOT RETURN TO [facility] OR ANY OTHER CUSTODIAL WITHOUT ROMIE APPROVAL. LUCAS Morris DCP- Discharge Planning Updated by [id number]: Merrick Sewell on 02/21/19 2:[address] Patient Name: ANTOINETTE LOYD Encounter No: [id number] : 1940 Primary Insurance: MEDICARE A & B Anticipated DC Date: 02-24-2019 Planned Disposition: Jail Facility External Planned Provider:[facility], LONG TERM CARE MEDICAID BED DCP follow-up note: CM SPOKE TO DR. ANGEL AND PT'S SPOUSE IN ROOM. BOTH UPDATED ON NEED FOR ROMIE SCREENING PER FACILITY AND THAT [facility] WILL NOT REOPEN FOR SCREENING UNTIL 02-24-19. DR. ANGEL SIGNED ROMIE. CM SUBMITTED SCREENING TO [facility]. CM WAITING ROMIE SCREENING DETERMINATION. PT MAY NOT RETURN TO [facility] OR ANY OTHER CUSTODIAL WITHOUT ROMIE APPROVAL. Merrick Sewell CASE MANAGEMENT DCP- Discharge Planning Updated by [id number]: Merrick Sewell on 02/19/19 3:[address] Patient Name: ANTOINETTE LOYD Encounter No: [id number] : 1940 Primary Insurance: MEDICARE A & B Anticipated DC Date: 02-24-2019 Planned Disposition: Jail Facility External Planned Provider: [facility], LONG TERM CARE MEDICAID BED DCP follow-up note: CM RECEIVED TELEPHONE MESSAGE FROM PRINCE AT [facility], THEY WILL NOT ACCEPT PT BACK WITHOUT [facility]IE SCREENING APPROVAL. MERRITT BRUNO INFORMED CM THAT PT'S SPOUSE HAS BEEN NOTIFIED OF DELAY. CM TO COMPLETE AND SUBMIT SCREENING TO [facility] SOON POSSIBLE. PT MAY NOT RETURN TO [facility] OR ANY OTHER CUSTODIAL WITHOUT ROMIE APPROVAL. LUCAS Morris DCP- Discharge Planning Updated by [email or web address]: Merrick Sewell on 02/19/19 8:[address] Patient Name: ANTOINETTE LOYD Encounter No: [id number] : 1940 Primary Insurance: MEDICARE A & B Anticipated DC Date: 02-20-2019 Planned Disposition: Jail Facility External Planned Provider:[facility], LONG TERM CARE MEDICAID BED DCP follow-up note: CM SPOKE TO PT AND SPOUSE IN ROOM, PT CONFUSED; PT'S SPOUSE IN AGREEMENT WITH DISCHARGE TO [facility] FOR CONTINUED SENIOR LIVING CARE AND IV ANTIBIOTICS TODAY. CM CALLED [facility], . CM NOTIFIED [facility] WHO INFORMED CM THEY WILL ACCEPT PT TO SENIOR LIVING CARE TODAY. CM FAXED DISCHARGE INFORMATION TO [facility] AT [phone]. NURSE REPORT TO BE CALLED TO [facility] AT [phone]. PT TO TRANSPORT VIA AMBULANCE. LUCAS Morris MANAGEMENT DCP- Discharge Planning Updated by [id number]: Merrick Sewell on 02/19/19 8:[address] Patient Name: ANTOINETTE LOYD Encounter No: [id number] : 1940 Primary Insurance: MEDICARE A & B Anticipated DC Date: 02-20-2019 Planned Disposition: Jail Facility External Planned Provider: [facility], MEDICAL ADMINISTRATOR CARE MEDICAID BED DCP follow-up note: CM SPOKE TO DR. ANGEL WHO INFORMED CM THAT PT WILL DISCHARGE TODAY AFTER MID OR PICC LINE WITH NEED OF IV ANTIBIOTICS AT CUSTODIAL. CM CALLED [facility], . CM PLACED ON EXTENDED HOLD. CM SPOKE TO VASCULAR ACCESS NURSE WHO INFORMED CM THAT PT HAS MIDLINE PLACED. CM FAXED UPDATE TO [facility] AT [phone]. FOR DISCHARGE, FAX DISCHARGE INFORMATION TO [facility] AT [phone]; NURSE REPORT TO BE CALLED TO [facility] AT [phone]. [facility] TO ARRANGE VAN TRANSPORTATION IF APPROPRIATE. LUCAS Morris DCP- Discharge Planning Updated by [id number]: Merrick Sewell on 02/18/19 1:[address] Patient Name: ANTOINETTE LOYD Encounter No: [id number] : 1940 Primary Insurance: MEDICARE A & B Anticipated DC Date: 02-20-2019 Planned Disposition: Jail Facility External Planned Provider: [facility], MEDICAL ADMINISTRATOR CARE MEDICAID BED DCP follow-up note: TIFFANIE RECEIVED CALL FROM [facility] WHO VERIFIED PT IS IN SENIOR LIVING CARE MEDICAID BED FROM FACILITY, UNDERSTANDS THAT FAMILY WILL NOT RETURN PT TO [facility] AT [place] AND THAT [facility] PLANS TO ACCEPT PT BACK FOR CONTINUED MEDICAL ADMINISTRATOR CARE. PRINCE ASKED FOR FAX UPDATE. TIFFANIE SPOKE TO RN TIFFANIE GORE WHO ADVISED THAT UPDATE HAS BEEN FAXED TO [facility] TODAY. FOR DISCHARGE, FAX DISCHARGE INFORMATION TO [facility] AT [phone]; NURSE REPORT TO BE CALLED TO [facility] AT [phone]. [facility] TO ARRANGE VAN TRANSPORTATION IF APPROPRIATE. Merrick Sewell CASE MANAGEMENT DCP- Discharge Planning Updated by [email or web address]: Janice Gore on 02/18/19 12:[address] DC PLAN: Return to [facility]. ANTICIPATED DC NEEDS: Transport back to [facility]. CM met with patient and her , Francois Loyd, to complete initial dc planning assessment. CM educated them on the CM role and verbal consent given by Francois to complete assessment. CM verified patient's address, phone number, and emergency contact phone numbers. 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 Francois reports prior to admission to the [facility] unit she was able to ambulate without assistive devices. At discharge Francois said the patient will return to [facility] and feels this is a safe discharge. He does not want her to return to [facility]. CM faxed update to [facility] as requested. CM will continue to follow and will assist as needed with dc plans/needs. Janice Gore RN, [facility] DCPIA - Discharge Planning Initial Assessment Updated by [id number]: Janice Gore on 02/18/19 1:55 pm * Is the patient Alert and Oriented? No * How many steps to enter\exit or inside your home? None * PCP Dr. Angel * Pharmacy custodial pharmacy * Preadmission Environment [facility] * Facility Name [facility] * ADLs Partial Dependent * Partial ADLs (Assistance needed) Dressing Medication Management * Other Equipment reports she was able to ambulate in [place] without assistive devises prior to admission in [facility]. * List name and contact numbers for known caregivers / representatives who currently or will assist patient after discharge: Francois Loyd - - [phone] (home) [phone] (cell) * Verbal permission to speak to the caregivers and representatives has been obtained from the patient. Yes * Community resources currently utilized None * Additional services required to return to the preadmission environment? No * Can the patient safely return to the preadmission environment? Yes * Has this patient been hospitalized within the prior 30 days at any hospital? Yes Coverage Notice Reviewer: [id number] - Merrick Sewell Notice Issued Date-Time: 02/24/2019 9:00 Notice Type: IM Discharge Notice Notice Delivered To: Family Member Relationship to Patient: Spouse Guest Services Lead Name: francois loyd Delivery Method: HAND - Hand Delivered Shelli Days: Prior Verbal Notification: Recipient Understood Notice: Yes Recipient Signature: Yes Med Rec Note Co-signed by Attending: Coverage Notice Comment: Last DP export: 02/24/19 5:56 a Patient Name: ANTOINETTE LOYD Page 27034 at 0933 All edits/amendments must be made on the electronic document DICTATION DATE: 02/24/19931 STAPLE FIBER WASHER: NORAH 02/24/19931 RPT#: [id number] DC DATE: STATUS: ADM IN [facility] [address] [place] [address] END OF REPORT
--- NOTE | 2019-02-24 11:16 | MORECARE ---
CASE MANAGEMENT DISCHARGE SUMMARY PATIENT: ANTOINETTE LOYD UNIT: [id number] ADM DATE: 02/17/19 AGE: 78 : 42 SEX: F ROOM/BED: D. AUTHOR: KANCHAN,DOC PHYSICIAN: REFERRING PHYSICIAN: BUD ANGEL MD DATE OF SERVICE: 02/24/19 Discharge Plan Patient Name: ANTOINETTE LOYD Facility: [facility] : 1940 Planned Disposition: Longterm Facility Anticipated Discharge Date: 02/24/19 Discharge Date: Expected LOS: 7 Initial Reviewer: [id number] Initial Review Date: 02/17/2019 Generated: 02/24/19 12:15 pm Comments DCP- Discharge Planning Updated by [id number]: Merrick Sewell on 02/24/19 8:[address] Patient Name: ANTOINETTE LOYD Encounter No: [id number] : 1940 Primary Insurance: MEDICARE A & B Anticipated DC Date: 02-24-2019 Planned Disposition: Longterm Facility External Planned Provider: [facility], CORRECTION CARE MEDICAID BED DCP follow-up note: CM FAXED UPDATE TO [facility], . CM WAITING ROMIE SCREENING DETERMINATION. PT MAY NOT RETURN TO [facility] OR ANY OTHER PRISON WITHOUT [facility]IE APPROVAL. Merrick Sewell CASE MANAGEMENT Appended by Merrick Sewell on 02/24/2019 9:28 HEAD WRESTLING COACH: CM PROVIDED AND DISCUSSED IMPORTANT MESSAGE FROM MEDICARE WITH PT'S SPOUSE. PT'S SPOUSE WOULD LIKE PT RETURNED TO [facility] SOON POSSIBLE. CM EXPLAINED DELAY IN RECEIVING ROMIE RESPONSE DUE TO STATE HOLIDAY SCHEDULE. CM WAITING ROMIE SCREENING DETERMINATION. PT MAY NOT RETURN TO [facility] OR ANY OTHER PRISON WITHOUT ROMIE APPROVAL. LUCAS Morris DCP- Discharge Planning Updated by [email or web address]: Merrick Sewell on 02/21/19 2:[address] Patient Name: ANTOINETTE LOYD Encounter No: [id number] : 1940 Primary Insurance: MEDICARE A & B Anticipated DC Date: 02-24-2019 Planned Disposition: Longterm Facility External Planned Provider:[facility], LONG TERM CARE MEDICAID BED DCP follow-up note: CM SPOKE TO DR. ANGEL AND PT'S SPOUSE IN ROOM. BOTH UPDATED ON NEED FOR ROMIE SCREENING PER FACILITY AND THAT [facility] WILL NOT REOPEN FOR SCREENING UNTIL 02-24-19. DR. ANGEL SIGNED ROMIE. CM SUBMITTED SCREENING TO [facility]. CM WAITING ROMIE SCREENING DETERMINATION. PT MAY NOT RETURN TO [facility] OR ANY OTHER PRISON WITHOUT ROMIE APPROVAL. Merrick Sewell CASE MANAGEMENT DCP- Discharge Planning Updated by [id number]: Merrick Sewell on 02/19/19 3:[address] Patient Name: ANTOINETTE LOYD Encounter No: [id number] : 1940 Primary Insurance: MEDICARE A & B Anticipated DC Date: 02-24-2019 Planned Disposition: Longterm Facility External Planned Provider: [facility], LONG TERM CARE MEDICAID BED DCP follow-up note: CM RECEIVED TELEPHONE MESSAGE FROM PRINCE AT [facility], THEY WILL NOT ACCEPT PT BACK WITHOUT [facility] SCREENING APPROVAL. MERRITT BRUNO INFORMED CM THAT PT'S SPOUSE HAS BEEN NOTIFIED OF DELAY. CM TO COMPLETE AND SUBMIT SCREENING TO [facility] SOON POSSIBLE. PT MAY NOT RETURN TO [facility] OR ANY OTHER PRISON WITHOUT ROMIE APPROVAL. LUCAS Morris DCP- Discharge Planning Updated by [id number]: Merrick Sewell on 02/19/19 8:[address] Patient Name: ANTOINETTE LOYD Encounter No: [id number] : 1940 Primary Insurance: MEDICARE A & B Anticipated DC Date: 02-20-2019 Planned Disposition: Longterm Facility External Planned Provider:[facility], LONG TERM CARE MEDICAID BED DCP follow-up note: CM SPOKE TO PT AND SPOUSE IN ROOM, PT CONFUSED; PT'S SPOUSE IN AGREEMENT WITH DISCHARGE TO [facility] FOR CONTINUED CORRECTION CARE AND IV ANTIBIOTICS TODAY. CM CALLED [facility], . CM NOTIFIED [facility] WHO INFORMED CM THEY WILL ACCEPT PT TO CORRECTION CARE TODAY. CM FAXED DISCHARGE INFORMATION TO [facility] AT [phone]. NURSE REPORT TO BE CALLED TO [facility] AT [phone]. PT TO TRANSPORT VIA AMBULANCE. LUCAS Morris MANAGEMENT DCP- Discharge Planning Updated by [id number]: Merrick Sewell on 02/19/19 8:[address] Patient Name: ANTOINETTE LOYD Encounter No: [id number] : 1940 Primary Insurance: MEDICARE A & B Anticipated DC Date: 02-20-2019 Planned Disposition: Longterm Facility External Planned Provider: [facility], TRIM SETTER HELPER CARE MEDICAID BED DCP follow-up note: CM SPOKE TO DR. ANGEL WHO INFORMED CM THAT PT WILL DISCHARGE TODAY AFTER MID OR PICC LINE WITH NEED OF IV ANTIBIOTICS AT PRISON. CM CALLED [facility], . CM PLACED ON EXTENDED HOLD. CM SPOKE TO VASCULAR ACCESS NURSE WHO INFORMED CM THAT PT HAS MIDLINE PLACED. CM FAXED UPDATE TO [facility] AT [phone]. FOR DISCHARGE, FAX DISCHARGE INFORMATION TO [facility] AT [phone]; NURSE REPORT TO BE CALLED TO [facility] AT [phone]. [facility] TO ARRANGE VAN TRANSPORTATION IF APPROPRIATE. LUCAS Morris DCP- Discharge Planning Updated by [id number]: Merrick Sewell on 02/18/19 1:[address] Patient Name: ANTOINETTE LOYD Encounter No: [id number] : 1940 Primary Insurance: MEDICARE A & B Anticipated DC Date: 02-20-2019 Planned Disposition: Longterm Facility External Planned Provider: [facility], TRIM SETTER HELPER CARE MEDICAID BED DCP follow-up note: TIFFANIE RECEIVED CALL FROM [facility] WHO VERIFIED PT IS IN CORRECTION CARE MEDICAID BED FROM FACILITY, UNDERSTANDS THAT FAMILY WILL NOT RETURN PT TO NURSING HOME AT [place] AND THAT [facility] PLANS TO ACCEPT PT BACK FOR CONTINUED TRIM SETTER HELPER CARE. PRINCE ASKED FOR FAX UPDATE. TIFFANIE SPOKE TO RN TIFFANIE GORE WHO ADVISED THAT UPDATE HAS BEEN FAXED TO [facility] TODAY. FOR DISCHARGE, FAX DISCHARGE INFORMATION TO [facility] AT [phone]; NURSE REPORT TO BE CALLED TO [facility] AT [phone]. [facility] TO ARRANGE VAN TRANSPORTATION IF APPROPRIATE. Merrick Sewell CASE MANAGEMENT DCP- Discharge Planning Updated by [id number]: Janice Gore on 02/18/19 12:[address] DC PLAN: Return to [facility]. ANTICIPATED DC NEEDS: Transport back to [facility]. CM met with patient and her , Francois Loyd, to complete initial dc planning assessment. CM educated them on the CM role and verbal consent given by Francois to complete assessment. CM verified patient's address, phone number, and emergency contact phone numbers. 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 Francois reports prior to admission to the [facility] unit she was able to ambulate without assistive devices. At discharge Francois said the patient will return to [facility] and feels this is a safe discharge. He does not want her to return to [facility]. CM faxed update to [facility] as requested. CM will continue to follow and will assist as needed with dc plans/needs. Janice Gore RN, [facility] DCPIA - Discharge Planning Initial Assessment Updated by [email or web address]: Janice Gore on 02/18/19 1:55 pm * Is the patient Alert and Oriented? No * How many steps to enter\exit or inside your home? None * PCP Dr. Angel * Pharmacy half-way pharmacy * Preadmission Environment [facility] * Facility Name [facility] * ADLs Partial Dependent * Partial ADLs (Assistance needed) Dressing Medication Management * Other Equipment reports she was able to ambulate in [place] without assistive devises prior to admission in [facility]. * List name and contact numbers for known caregivers / representatives who currently or will assist patient after discharge: Francois Loyd - - [phone] (home) [phone] (cell) * Verbal permission to speak to the caregivers and representatives has been obtained from the patient. Yes * Community resources currently utilized None * Additional services required to return to the preadmission environment? No * Can the patient safely return to the preadmission environment? Yes * Has this patient been hospitalized within the prior 30 days at any hospital? Yes Coverage Notice Reviewer: [id number] - Merrick Sewell Notice Issued Date-Time: 02/24/2019 9:00 Notice Type: IM Discharge Notice Notice Delivered To: Family Member Relationship to Patient: Spouse Press Secretary Name: francois loyd Delivery Method: HAND - Hand Delivered Shelli Days: Prior Verbal Notification: Recipient Understood Notice: Yes Recipient Signature: Yes Med Rec Note Co-signed by Attending: Coverage Notice Comment: Last DP export: 02/24/19 8:33 a Patient Name: ANTOINETTE LOYD Page 90221 at 1116 All edits/amendments must be made on the electronic document DICTATION DATE: 02/24/191114 SENIOR CLINICAL CONSULTANT: NORAH 02/24/191114 RPT#: [id number] DC DATE: STATUS: ADM IN [facility] [address] [place] [address] END OF REPORT
--- NOTE | 2019-02-24 11:23 | MORECARE ---
CASE MANAGEMENT DISCHARGE SUMMARY PATIENT: ANTOINETTE LOYD UNIT: [id number] ADM DATE: 02/17/19 AGE: 78 : 42 SEX: F ROOM/BED: D.6973 AUTHOR: KANCHAN,DOC PHYSICIAN: REFERRING PHYSICIAN: BUD ANGEL MD DATE OF SERVICE: 02/24/19 Discharge Plan Patient Name: ANTOINETTE LOYD Facility: [facility]:[place] : 1940 Planned Disposition: Assisted Facility Anticipated Discharge Date: 02/24/19 Discharge Date: Expected LOS: 7 Initial Reviewer: [id number] Initial Review Date: 02/17/2019 Generated: 02/24/19 12:23 pm Comments DCP- Discharge Planning Updated by [id number]: Merrick Sewell on 02/24/19 10:[address] Patient Name: ANTOINETTE LOYD Encounter No: [id number] : 1940 Primary Insurance: MEDICARE A & B Anticipated DC Date: 02-24-2019 Planned Disposition: Assisted Facility External Planned Provider: [facility], LONG TERM CARE MEDICAID BED DCP follow-up note: CM RECEIVED ROMIE RESULT, PT IS NON PASRR AND MAY ENTER CARE HOME FACILITY. CM CALLED [facility], . CM NOTIFIED VOICE MAIL OF PATIENTS ROMIE STATUS AND DISCHARGE BACK TO [facility] TODAY. CM NOTIFIED DR. ANGEL WHO INFORMED CM THAT DISCHARGE WAS ALREADY DONE. CM HAS PREVIOUSLY FAXED DISCHARGE INFORMATION TO [facility] AT [phone]. NURSE REPORT TO BE CALLED TO [facility] AT [phone]. PT TO TRANSPORT VIA AMBULANCE. Merrick Sewell CASE AMADA DCP- Discharge Planning Updated by [id number]: Merrick Sewell on 02/24/19 8:[address] Patient Name: ANTOINETTE LOYD Encounter No: [id number] : 1940 Primary Insurance: MEDICARE A & B Anticipated DC Date: 02-24-2019 Planned Disposition: Assisted Facility External Planned Provider: [facility], LONG TERM CARE MEDICAID BED DCP follow-up note: CM FAXED UPDATE TO [facility], . CM WAITING ROMIE SCREENING DETERMINATION. PT MAY NOT RETURN TO [facility] OR ANY OTHER INTERMEDIATE WITHOUT ROMIE APPROVAL. Merrick Sewell, CASE MANAGEMENT Appended by Merrick Sewell on 02/24/2019 9:28 VENTILATED RIB FITTER: CM PROVIDED AND DISCUSSED IMPORTANT MESSAGE FROM MEDICARE WITH PT'S SPOUSE. PT'S SPOUSE WOULD LIKE PT RETURNED TO [facility] SOON POSSIBLE. CM EXPLAINED DELAY IN RECEIVING ROMIE RESPONSE DUE TO STATE HOLIDAY SCHEDULE. CM WAITING ROMIE SCREENING DETERMINATION. PT MAY NOT RETURN TO [facility] OR ANY OTHER INTERMEDIATE WITHOUT ROMIE APPROVAL. LUCAS Morris MANAGEMENT DCP- Discharge Planning Updated by [id number]: Merrick Sewell on 02/21/19 2:[address] Patient Name: ANTOINETTE LOYD Encounter No: [id number] : 1940 Primary Insurance: MEDICARE A & B Anticipated DC Date: 02-24-2019 Planned Disposition: Assisted Facility External Planned Provider:[facility], LONG TERM CARE MEDICAID BED DCP follow-up note: CM SPOKE TO DR. ANGEL AND PT'S SPOUSE IN ROOM. BOTH UPDATED ON NEED FOR ROMIE SCREENING PER FACILITY AND THAT ROMIE WILL NOT REOPEN FOR SCREENING UNTIL 02-24-19. DR. ANGEL SIGNED ROMIE. CM SUBMITTED SCREENING TO [facility]. CM WAITING ROMIE SCREENING DETERMINATION. PT MAY NOT RETURN TO [facility] OR ANY OTHER INTERMEDIATE WITHOUT ROMIE APPROVAL. LUCAS Morris DCP- Discharge Planning Updated by [id number]: Merrick Sewell on 02/19/19 3:[address] Patient Name: ANTOINETTE LOYD Encounter No: [id number] : 1940 Primary Insurance: MEDICARE A & B Anticipated DC Date: 02-24-2019 Planned Disposition: Assisted Facility External Planned Provider: [facility], LONG TERM CARE MEDICAID BED DCP follow-up note: CM RECEIVED TELEPHONE MESSAGE FROM PRINCE AT [facility], THEY WILL NOT ACCEPT PT BACK WITHOUT ROMIE SCREENING APPROVAL. [facility] INFORMED CM THAT PT'S SPOUSE HAS BEEN NOTIFIED OF DELAY. CM TO COMPLETE AND SUBMIT SCREENING TO [facility] SOON POSSIBLE. PT MAY NOT RETURN TO [facility] OR ANY OTHER INTERMEDIATE WITHOUT ROMIE APPROVAL. Merrick Sewell CASE MANAGEMENT DCP- Discharge Planning Updated by [id number]: Merrick Sewell on 02/19/19 8:[address] Patient Name: ANTOINETTE LOYD Encounter No: [id number] : 1940 Primary Insurance: MEDICARE A & B Anticipated DC Date: 02-20-2019 Planned Disposition: Assisted Facility External Planned Provider:[facility] TERM CARE MEDICAID BED DCP follow-up note: CM SPOKE TO PT AND SPOUSE IN ROOM, PT CONFUSED; PT'S SPOUSE IN AGREEMENT WITH DISCHARGE TO [facility] FOR CONTINUED [facility] CARE AND IV ANTIBIOTICS TODAY. CM CALLED [facility], . CM NOTIFIED [facility] WHO INFORMED CM THEY WILL ACCEPT PT TO [facility] TODAY. CM FAXED DISCHARGE INFORMATION TO [facility] AT [phone]. NURSE REPORT TO BE CALLED TO [facility] AT [phone]. PT TO TRANSPORT VIA AMBULANCE. Merrick Sewell CASE MANAGEMENT DCP- Discharge Planning Updated by [id number]: Merrick Sewell on 02/19/19 8:[address] Patient Name: ANTOINETTE LOYD Encounter No: [id number] : 1940 Primary Insurance: MEDICARE A & B Anticipated DC Date: 02-20-2019 Planned Disposition: Assisted Facility External Planned Provider: [facility] TERM CARE MEDICAID BED DCP follow-up note: CM SPOKE TO DR. ANGEL WHO INFORMED CM THAT PT WILL DISCHARGE TODAY AFTER MID OR PICC LINE WITH NEED OF IV ANTIBIOTICS AT INTERMEDIATE. CM CALLED [facility], . CM PLACED ON EXTENDED HOLD. CM SPOKE TO VASCULAR ACCESS NURSE WHO INFORMED CM THAT PT HAS MIDLINE PLACED. CM FAXED UPDATE TO [facility] AT [phone]. FOR DISCHARGE, FAX DISCHARGE INFORMATION TO [facility] AT [phone]; NURSE REPORT TO BE CALLED TO [facility] AT [phone]. [facility] TO ARRANGE VAN TRANSPORTATION IF APPROPRIATE. Merrick Sewell CASE MANAGEMENT DCP- Discharge Planning Updated by [id number]: Merrick Sewell on 02/18/19 1:[address] Patient Name: ANTOINETTE LOYD Encounter No: [id number] : 1940 Primary Insurance: MEDICARE A & B Anticipated DC Date: 02-20-2019 Planned Disposition: Assisted Facility External Planned Provider: [facility], [facility] CARE MEDICAID BED DCP follow-up note: CM RECEIVED CALL FROM PRINCE HAMILTON OF [facility] WHO VERIFIED PT IS IN [facility]ARE MEDICAID BED FROM FACILITY, UNDERSTANDS THAT FAMILY WILL NOT RETURN PT TO [facility] AND THAT [facility] PLANS TO ACCEPT PT BACK FOR CONTINUED SENIOR CARE CARE. PRINCE ASKED FOR FAX UPDATE. CM SPOKE TO MERRITT GORE WHO ADVISED THAT UPDATE HAS BEEN FAXED TO [facility] TODAY. FOR DISCHARGE, FAX DISCHARGE INFORMATION TO [facility] AT [phone]; NURSE REPORT TO BE CALLED TO [facility] AT [phone]. [facility] TO ARRANGE VAN TRANSPORTATION IF APPROPRIATE. Merrick Sewell, CASE MANAGEMENT DCP- Discharge Planning Updated by [id number]: Janice Gore on 02/18/19 12:[address] DC PLAN: Return to [facility]. ANTICIPATED DC NEEDS: Transport back to [facility]. CM met with patient and her , Francois Loyd, to complete initial dc planning assessment. CM educated them on the CM role and verbal consent given by Francois to complete assessment. CM verified patient's address, phone number, and emergency contact phone numbers. 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 Francois reports prior to admission to the [facility] Care unit she was able to ambulate without assistive devices. At discharge Francois said the patient will return to [facility] and feels this is a safe discharge. He does not want her to return to [facility]. CM faxed update to [facility] as requested. CM will continue to follow and will assist as needed with dc plans/needs. Janice Gore RN, [facility] DCPIA - Discharge Planning Initial Assessment Updated by [id number]: Janice Gore on 02/18/19 1:55 pm * Is the patient Alert and Oriented? No * How many steps to enter\exit or inside your home? None * PCP Dr. Angel * Pharmacy [facility] * Preadmission Environment Air Intelligence Officer Intermediate * Facility Name [facility] * ADLs Partial Dependent * Partial ADLs (Assistance needed) Dressing Medication Management * Other Equipment reports she was able [place] ambulate [place] without assistive devises prior to admission in [facility]. * List name and contact numbers for known caregivers / representatives who currently or will assist patient after discharge: Francois Loyd - - [phone] (home) [phone] (cell) * Verbal permission to speak to the caregivers and representatives has been obtained from the patient. Yes * Community resources currently utilized None * Additional services required to return to the preadmission environment? No * Can the patient safely return to the preadmission environment? Yes * Has this patient been hospitalized within the prior 30 days at any hospital? Yes Coverage Notice Reviewer: [id number] Halie Sewell Notice Issued Date-Time: 02/24/2019 9:00 Notice Type: IM Discharge Notice Notice Delivered To: Family Member Relationship to Patient: Spouse Safety Council Director Name: francois loyd Delivery Method: HAND - Hand Delivered Shelli Days: Prior Verbal Notification: Recipient Understood Notice: Yes Recipient Signature: Yes Med Rec Note Co-signed by Attending: Coverage Notice Comment: Last DP export: 02/24/19 10:16 a Patient Name: ANTOINETTE LOYD Page 35850 at 1123 All edits/amendments must be made on the electronic document DICTATION DATE: 02/24/19 112 SCOUT PROFESSIONAL SPORTS: NORAH 02/24/19 1123 RPT#: [id number] DC DATE: STATUS: ADM IN [facility] [address] [place] [address] END OF REPORT
--- NOTE | 2019-02-24 11:26 | NUR ---
PAGE INTO DR GUTIERREZ TO SEE ABOUT CONTINUATION OF IV ANTIBIOTICS. AWAITING CALL BACK.
--- NOTE | 2019-02-24 11:28 | NUR ---
DR GUTIERREZ TO CALL BACK WITH NEW ORDERS FOR IV ANTIBIOTICS.
--- NOTE | 2019-02-24 11:36 | NUR ---
CALLED AND TALKED TO DOMENICO, PHARMACIST AT [facility] AND CHANGED THE AMOUNT OF IV ANTIBIOTICS OF MERREM AND VANC.
[2019-02-24 11:43] VITALS: BP 124/74
--- NOTE | 2019-02-24 13:08 | NUR ---
Nutrition Follow-up: Spoke with pt's spouse. He reports that pt is eating "same as always". Per record, noted 0% of breakfast eaten this AM but drank some Ensure. Noted plans to d/c today. Diet: Regular, Mech Soft, Ensure TID PO intake: 0-25% No new wt Last BM: 02/23 per Labs noted: Na 135 Meds noted: Megace, NS @ 100, Colace -Continue current diet/supplements as tolerated. -Bayard food preferences within diet restrictions. -RD following.
--- NOTE | 2019-02-24 13:32 | NUR ---
CALLED REPORT TO [facility] NURSE MARLON. CALLED AND AMBULANCE WILL BE HERE IN ABOUT AN HOUR. WILL GET PATIENT DRESSED. DISCHARGE TEACHING HAS BEEN DONE AND PAPERS SIGNED. MIDLINE IS BEING LEFT IN PLACE.
--- NOTE | 2019-02-24 14:06 | NUR ---
PATIENT IS DRESSED AND READY. ALL HER BELONGINGS AR BAGED UP AND SHE IS READY TO BE DISCHARGED. AT BEDSIDE.
--- NOTE | 2019-02-24 15:24 | NUR ---
PATIENT HAS BEEN DISCHARGED. AMBULANCE JUST CAME AND PICKED HER UP. SHE LEFT THE FLOOR BY STRETCHER AND AT BEDSIDE. ALL PATIENT BELONGINGS HAVE BEEN REMOVED FROM THE ROOM.
--- NOTE | 2019-02-25 07:50 | MORECARE ---
CASE MANAGEMENT DISCHARGE SUMMARY PATIENT: ANTOINETTE LOYD UNIT: [id number] ADM DATE: 02/17/19 AGE: 78 : 42 SEX: F ROOM/BED: D.4161 AUTHOR: KANCHAN,DOC PHYSICIAN: REFERRING PHYSICIAN: BUD ANGEL MD DATE OF SERVICE: 02/25/19 Discharge Plan Patient Name: ANTOINETTE LOYD Facility: [facility]:[place] : 1940 Planned Disposition: Prison Facility Anticipated Discharge Date: 02/24/19 Discharge Date: 02/24/2019 Expected LOS: 7 Initial Reviewer: [id number] Initial Review Date: 02/17/2019 Generated: 02/25/19 8:49 am Comments DCP- Discharge Planning Updated by [id number]: Merrick Sewell on 02/24/19 10:[address] Patient Name: ANTOINETTE LOYD Encounter No: [id number] : 1940 Primary Insurance: MEDICARE A & B Anticipated DC Date: 02-24-2019 Planned Disposition: Prison Facility External Planned Provider: [facility], LONG TERM CARE MEDICAID BED DCP follow-up note: CM RECEIVED ROMIE RESULT, PT IS NON PASRR AND MAY ENTER PRISON FACILITY. CM CALLED [facility], . CM NOTIFIED VOICE MAIL OF PATIENTS ROMIE STATUS AND DISCHARGE BACK TO [facility] TODAY. CM NOTIFIED DR. ANGEL WHO INFORMED CM THAT DISCHARGE WAS ALREADY DONE. CM HAS PREVIOUSLY FAXED DISCHARGE INFORMATION TO [facility] AT [phone]. NURSE REPORT TO BE CALLED TO [facility] AT [phone]. PT TO TRANSPORT VIA AMBULANCE. LUCAS Morris DCP- Discharge Planning Updated by [id number]: Merrick Sewell on 02/24/19 8:[address] Patient Name: ANTOINETTE LOYD Encounter No: [id number] : 1940 Primary Insurance: MEDICARE A & B Anticipated DC Date: 02-24-2019 Planned Disposition: Prison Facility External Planned Provider: [facility], LONG TERM CARE MEDICAID BED DCP follow-up note: CM FAXED UPDATE TO [facility], . CM WAITING ROMIE SCREENING DETERMINATION. PT MAY NOT RETURN TO [facility] OR ANY OTHER RESIDENTIAL WITHOUT ROMIE APPROVAL. Merrick Sewell, CASE MANAGEMENT Appended by Merrick Sewell on 02/24/2019 9:28 CASH ON DELIVERY CLERK: CM PROVIDED AND DISCUSSED IMPORTANT MESSAGE FROM MEDICARE WITH PT'S SPOUSE. PT'S SPOUSE WOULD LIKE PT RETURNED TO [facility] SOON POSSIBLE. CM EXPLAINED DELAY IN RECEIVING ROMIE RESPONSE DUE TO STATE HOLIDAY SCHEDULE. CM WAITING ROMIE SCREENING DETERMINATION. PT MAY NOT RETURN TO [facility] OR ANY OTHER RESIDENTIAL WITHOUT ROMIE APPROVAL. LUCAS Morris DCP- Discharge Planning Updated by [id number]: Merrick Sewell on 02/21/19 2:[address] Patient Name: ANTOINETTE LOYD Encounter No: [id number] : 1940 Primary Insurance: MEDICARE A & B Anticipated DC Date: 02-24-2019 Planned Disposition: Prison Facility External Planned Provider:[facility], LONG TERM CARE MEDICAID BED DCP follow-up note: CM SPOKE TO DR. ANGEL AND PT'S SPOUSE IN ROOM. BOTH UPDATED ON NEED FOR ROMIE SCREENING PER FACILITY AND THAT ROMIE WILL NOT REOPEN FOR SCREENING UNTIL 02-24-19. DR. ANGEL SIGNED ROMIE. CM SUBMITTED SCREENING TO [facility]. CM WAITING ROMIE SCREENING DETERMINATION. PT MAY NOT RETURN TO [facility] OR ANY OTHER RESIDENTIAL WITHOUT ROMIE APPROVAL. LUCAS Morris DCP- Discharge Planning Updated by [id number]: Merrick Sewell on 02/19/19 3:[address] Patient Name: ANTOINETTE LOYD Encounter No: [id number] : 1940 Primary Insurance: MEDICARE A & B Anticipated DC Date: 02-24-2019 Planned Disposition: Prison Facility External Planned Provider: [facility], LONG TERM CARE MEDICAID BED DCP follow-up note: CM RECEIVED TELEPHONE MESSAGE FROM PRINCE AT [facility], THEY WILL NOT ACCEPT PT BACK WITHOUT ROMIE SCREENING APPROVAL. [facility] INFORMED CM THAT PT'S SPOUSE HAS BEEN NOTIFIED OF DELAY. CM TO COMPLETE AND SUBMIT SCREENING TO [facility] SOON POSSIBLE. PT MAY NOT RETURN TO [facility] OR ANY OTHER RESIDENTIAL WITHOUT ROMIE APPROVAL. Merrick Sweell CASE MANAGEMENT DCP- Discharge Planning Updated by [id number]: Merrick Sewell on 02/19/19 8:[address] Patient Name: ANTOINETTE LOYD Encounter No: [id number] : 1940 Primary Insurance: MEDICARE A & B Anticipated DC Date: 02-20-2019 Planned Disposition: Prison Facility External Planned Provider:[facility], [facility] MEDICAID BED DCP follow-up note: CM SPOKE TO PT AND SPOUSE IN ROOM, PT CONFUSED; PT'S SPOUSE IN AGREEMENT WITH DISCHARGE TO [facility] FOR CONTINUED [facility] AND IV ANTIBIOTICS TODAY. CM CALLED [facility], . CM NOTIFIED CHU[facility] WHO INFORMED CM THEY WILL ACCEPT PT TO [facility] MACHINE OPERATOR C[facility] TODAY. CM FAXED DISCHARGE INFORMATION TO [facility] AT [phone]. NURSE REPORT TO BE CALLED TO [facility] AT [phone]. PT TO TRANSPORT VIA AMBULANCE. Merrick Sewell CASE MANAGEMENT DCP- Discharge Planning Updated by [id number]: Merrick Sewell on 02/19/19 8:[address] Patient Name: ANTOINETTE LOYD Encounter No: [id number] : 1940 Primary Insurance: MEDICARE A & B Anticipated DC Date: 02-20-2019 Planned Disposition: Prison Facility External Planned Provider: [facility], LONG TERM CARE MEDICAID BED DCP follow-up note: CM SPOKE TO DR. ANGEL WHO INFORMED CM THAT PT WILL DISCHARGE TODAY AFTER MID OR PICC LINE WITH NEED OF IV ANTIBIOTICS AT RESIDENTIAL. CM CALLED [facility], . CM PLACED ON EXTENDED HOLD. CM SPOKE TO VASCULAR ACCESS NURSE WHO INFORMED CM THAT PT HAS MIDLINE PLACED. CM FAXED UPDATE TO [facility] AT [phone]. FOR DISCHARGE, FAX DISCHARGE INFORMATION TO [facility] AT [phone]; NURSE REPORT TO BE CALLED TO [facility] AT [phone]. [facility] TO ARRANGE VAN TRANSPORTATION IF APPROPRIATE. Merrick Sewell CASE MANAGEMENT DCP- Discharge Planning Updated by [id number]: Merrick Sewell on 02/18/19 1:[address] Patient Name: ANTOINETTE LOYD Encounter No: [id number] : 1940 Primary Insurance: MEDICARE A & B Anticipated DC Date: 02-20-2019 Planned Disposition: Prison Facility External Planned Provider: [facility], [facility] MEDICAID BED DCP follow-up note: CM RECEIVED CALL FROM PRINCE HAMILTON OF [facility] WHO VERIFIED PT IS IN [facility] MEDICAID BED FROM FACILITY, UNDERSTANDS THAT FAMILY WILL NOT RETURN PT TO [facility] AND THAT [facility] PLANS TO ACCEPT PT BACK FOR CONTINUED BINDING MACHINE OPERATOR CARE. [facility]INCE ASKED FOR FAX UPDATE. CM SPOKE TO MERRITT GORE WHO ADVISED THAT UPDATE HAS BEEN FAXED TO [facility] TODAY. FOR DISCHARGE, FAX DISCHARGE INFORMATION TO [facility] AT [phone]; NURSE REPORT TO BE CALLED TO [facility] AT [phone]. [facility] TO ARRANGE VAN TRANSPORTATION IF APPROPRIATE. Merrick Sewell, CASE MANAGEMENT DCP- Discharge Planning Updated by [id number]: Janice Gore on 02/18/19 12:[address] DC PLAN: Return to [facility]. ANTICIPATED DC NEEDS: Transport back to [facility]. CM met with patient and her , Francois Loyd, to complete initial dc planning assessment. CM educated them on the CM role and verbal consent given by Francois to complete assessment. CM verified patient's address, phone number, and emergency contact phone numbers. 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 Francois reports prior to admission to the [facility] Care unit she was able to ambulate without assistive devices. At discharge Francois said the patient will return to [facility] and feels this is a safe discharge. He does not want her to return to [facility]. CM faxed update to [facility] as requested. CM will continue to follow and will assist as needed with dc plans/needs. Janice Gore RN, [facility] DCPIA - Discharge Planning Initial Assessment Updated by [id number]: Janice Gore on 02/18/19 1:55 pm * Is the patient Alert and Oriented? No * How many steps to enter\exit or inside your home? None * PCP Dr. Angel * Pharmacy skilled nursing pharmacy * Preadmission Environment Assisted Fdc * Facility Name [facility] * ADLs Partial Dependent * Partial ADLs (Assistance needed) Dressing Medication Management * Other Equipment reports she was able to ambulate in [place] without assistive devises prior to admission in [facility]. * List name and contact numbers for known caregivers / representatives who currently or will assist patient after discharge: Francois Loyd - - [phone] (home) [phone] (cell) * Verbal permission to speak to the caregivers and representatives has been obtained from the patient. Yes * Community resources currently utilized None * Additional services required to return to the preadmission environment? No * Can the patient safely return to the preadmission environment? Yes * Has this patient been hospitalized within the prior 30 days at any hospital? 

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
== END 2019-02-24 15:25 | DRG 871 ==
LOC: D.M2 12:59
PROVIDERS: ADMIT Family Medicine; ATTEND Family Medicine
PROC: 05HC33Z Insertion of Infusion Device into Left Basilic Vein, Percutaneous Approach (ICD-10-PCS; principal; 2019-02-19)
PROC: B54NZZA Ultrasonography of Left Upper Extremity Veins, Guidance (ICD-10-PCS; 2019-02-19)
DX: A41.9 Sepsis, unspecified organism (principal); N17.0 Acute kidney failure with tubular necrosis; J18.9 Pneumonia, unspecified organism; F02.81 Dementia in other diseases classified elsewhere, unspecified severity, with behavioral disturbance; R65.20 Severe sepsis without septic shock; G30.9 Alzheimer's disease, unspecified; E03.9 Hypothyroidism, unspecified; K21.9 Gastro-esophageal reflux disease without esophagitis; M06.9 Rheumatoid arthritis, unspecified; Z74.09 Other reduced mobility; F41.8 Other specified anxiety disorders; I10 Essential (primary) hypertension